=== PATIENT | male | born 1975 | race African-American/Black ===

== ENCOUNTER 2016-02-19 12:06 | Inpatient (IN) | payer MEDICARE, MEDICAID ==
[2016-02-19] MEDS ORDERED: Morphine INJ* 4 MG/ML 1 ML CARPUJECT IV ONE (15:16)
[2016-02-19] MEDS ORDERED: Ondansetron INJ* 2 MG/ML VIAL IV ONE (15:16)
[2016-02-19 15:34] LABS: Hematocrit 42 % (42-52); Hemoglobin 13.7 g/dl (14.0-18.0); Mean Corpuscular HGB Conc 33 g/dl (31-36); Mean Corpuscular Hemoglobin 30 pg (27-31); Mean Corpuscular Volume 91 fL (80-94); Mean Platelet Volume 10 um3 (7.4-10.4); Red Blood Count 4.63 10^6/ul (4.0-5.4); Red Cell Distribution Width 13 % (10.5-15); White Blood Count 20.3 10^3/ul (3.5-10.8)
[2016-02-19] MEDS: NS 0.9% 1000 ML* 1,000 ML IV SCH ×2 (15:45→21:58)
[2016-02-19 15:48] LABS: Troponin I 0.02 ng/mL (<0.04)
[2016-02-19 15:49] LABS: ALT 61 U/L (7-52); AST 10 U/L (13-39); Albumin 4.5 g/dL (3.2-5.2); Alkaline Phosphatase 103 U/L (34-104); Anion Gap 5 mmol/L (2-11); BUN/Creatinine Ratio 16.1 (8-20); Blood Urea Nitrogen 15 mg/dL (6-24); C Reactive Protein 3.91 mg/L (< 5.00); CO2 Carbon Dioxide 24 mmol/L (22-32); Chloride 107 mmol/L (101-111); Creatine Kinase 21 U/L (10-223); EGFR African American 115.2 (>60); EGFR Non-African American 89.5 (>60); Globulin 3.1 g/dL (2-4); Glucose 107 mg/dL (70-100); Lipase 13 U/L (11.0-82.0); Magnesium 2.7 mg/dL (1.9-2.7); Potassium 3.9 mmol/L (3.5-5.0); Sodium 136 mmol/L (133-145); Total Protein 7.6 g/dL (6.4-8.9)
[2016-02-19 15:55] LABS: Alcohol < 10 mg/dL (<10)
[2016-02-19 16:00] LABS: TSH (Thyroid Stimulating Horm) 0.53 mcIU/mL (0.34-5.60)
[2016-02-19] MEDS ORDERED: oxyCODONE TAB* 5 MG TAB PO ONE (16:36)
[2016-02-19] MEDS ORDERED: NS 0.9% 1000 ML* 1,000 ML IV ONE (16:40)
[2016-02-19] MEDS ORDERED: Ondansetron INJ* 2 MG/ML VIAL IV PRN (17:37)
[2016-02-19] MEDS ORDERED: Acetaminophen TAB* 325 MG PO PRN (17:37)
--- NOTE | 2016-02-19 17:45 | ED ---
Anurag Casas Karl, scribed for Jonatan Boone MD on 02/19/16 at 1455 . Neurological HPI - HPI Summary HPI Summary: Pt is a 40 y/o male that presents to the ED c/o MS exacerbation. Pt reported that at approx 07:30 this morning he began to have shakes and tremors in his legs bilaterally that was followed by 9/10 pain coming up his left side. Pt stated that he attempted to get up from the position he was in and his legs " not responding at all," stating that it feels like "electricity" is going up his legs. Pt reported that his left side is particularly weak and pain is shooting all up his left side. Pt takes Gabapentin, Keppra, and a fentanyl patch. Hx: MS, seizures. - History of Current Complaint Chief Complaint: EDGeneral Stated Complaint: LT SIDE PAIN Time Seen by Provider: 02/19/16 14:44 Hx Obtained From: Patient Onset/Duration: Gradual Onset, Started hours ago, Worse Since Timing: Constant Onset Severity: Mild Current Severity: Moderate Pain Intensity: 9 - Left Sided Pain Pain Scale Used: 0-10 Numeric Associated Signs and Symptoms: Positive: Weakness - and pain in left side - Allergy/Home Medications Allergies/Adverse Reactions: Allergies Allergy/AdvReac Type Severity Reaction Status Date / Time Meloxicam Allergy Severe See Comment Verified 02/19/16 12:25 PMH/Surg Hx/FS Hx/Imm Hx Infectious Disease History: No Infectious Disease History: Denies: Traveled Outside the [place] in Last 30 Days - Family History Known Family History: Positive: Cardiac Disease, Diabetes - Social History Alcohol Use: None Hx Tobacco Use: No Review of Systems Constitutional: Negative Eyes: Negative ENT: Negative Cardiovascular: Negative Respiratory: Negative Gastrointestinal: Negative Genitourinary: Negative Positive: Other - left sided weakness and pain Skin: Negative Positive: Weakness - left sided Psychological: Normal All Other Systems Reviewed And Are Negative: Yes Physical Exam Triage Information Reviewed: Yes Vital Signs On Initial Exam: Initial Vitals Temp Pulse Resp BP Pulse Ox 98.0 F 99 16 136/96 100 02/19/16 12:10 02/19/16 12:10 02/19/16 12:10 02/19/16 12:10 02/19/16 12:10 Vital Signs Reviewed: Yes Appearance: Positive: Well-Appearing, No Pain Distress Skin: Positive: Warm, Skin Color Reflects Adequate Perfusion, Dry Head/Face: Positive: Normal Head/Face Inspection Eyes: Positive: EOMI, EDMOND ENT: Positive: Normal ENT inspection Neck: Positive: Supple, Nontender Respiratory/Lung Sounds: Positive: Clear to Auscultation, Breath Sounds Present Cardiovascular: Positive: RRR Abdomen Description: Positive: Nontender, Soft Bowel Sounds: Positive: Present Musculoskeletal: Positive: Other - left arm and left leg weakness Neurological: Positive: Sensory/Motor Intact, Alert, Oriented to Person Place, Time, Other - left arm and left leg weakness Psychiatric: Positive: Affect/Mood Appropriate Diagnostics - Vital Signs Vital Signs Temp Pulse Resp BP Pulse Ox 02/19/16 12:10 98.0 F 99 16 136/96 100 - Laboratory Lab Results: Lab Results 02/19/16 02/19/16 02/19/16 Range/Units 15:05 15:05 15:05 WBC 20.3 H (3.5-10.8) 10^3/ul RBC 4.63 (4.0-5.4) 10^6/ul Hgb 13.7 L (14.0-18.0) g/dl Hct 42 (42-52) % MCV 91 (80-94) fL MCH 30 (27-31) pg MCHC 33 (31-36) g/dl RDW 13 (10.5-15) % Plt Count 329 (150-450) 10^3/ul MPV 10 (7.4-10.4) um3 Neut % (Auto) 88.9 H (38-83) % Lymph % (Auto) 6.8 L (25-47) % Fillmore % (Auto) 4.1 (1-9) % Eos % (Auto) 0 (0-6) % Baso % (Auto) 0.2 (0-2) % Absolute Neuts (auto) 18.1 H (1.5-7.7) 10^3/ul Absolute Lymphs (auto) 1.4 (1.0-4.8) 10^3/ul Absolute Monos (auto) 0.8 (0-0.8) 10^3/ul Absolute Eos (auto) 0 (0-0.6) 10^3/ul Absolute Basos (auto) 0 (0-0.2) 10^3/ul Absolute Nucleated RBC 0 10^3/ul Nucleated RBC % 0 INR (Anticoag Therapy) 1.08 (0.89-1.11) APTT 33.5 (26.0-36.3) seconds Sodium 136 (133-145) mmol/L Potassium 3.9 (3.5-5.0) mmol/L Chloride 107 (101-111) mmol/L Carbon Dioxide 24 (22-32) mmol/L Anion Gap 5 (2-11) mmol/L BUN 15 (6-24) mg/dL Creatinine 0.93 (0.67-1.17) mg/dL Est GFR ( Amer) 115.2 (>60) Est GFR (Non-Af Amer) 89.5 (>60) BUN/Creatinine Ratio 16.1 (8-20) Glucose 107 H (70-100) mg/dL Lactic Acid (0.5-2.0) mmol/L Calcium 10.0 (8.6-10.3) mg/dL Magnesium 2.7 (1.9-2.7) mg/dL Total Bilirubin 0.50 (0.2-1.0) mg/dL AST 10 L (13-39) U/L ALT 61 H (7-52) U/L Alkaline Phosphatase 103 (34-104) U/L Total Creatine Kinase 21 (10-223) U/L CK-MB (CK-2) 1.5 (0.6-6.3) ng/mL Troponin I 0.02 (<0.04) ng/mL C-Reactive Protein 3.91 (< 5.00) mg/L Total Protein 7.6 (6.4-8.9) g/dL Albumin 4.5 (3.2-5.2) g/dL Globulin 3.1 (2-4) g/dL Albumin/Globulin Ratio 1.5 (1-3) Lipase 13 (11.0-82.0) U/L TSH 0.53 (0.34-5.60) mcIU/mL Serum Alcohol < 10 (<10) mg/dL 02/19/16 Range/Units 15:05 WBC (3.5-10.8) 10^3/ul RBC (4.0-5.4) 10^6/ul Hgb (14.0-18.0) g/dl Hct (42-52) % MCV (80-94) fL MCH (27-31) pg MCHC (31-36) g/dl RDW (10.5-15) % Plt Count (150-450) 10^3/ul MPV (7.4-10.4) um3 Neut % (Auto) (38-83) % Lymph % (Auto) (25-47) % Fillmore % (Auto) (1-9) % Eos % (Auto) (0-6) % Baso % (Auto) (0-2) % Absolute Neuts (auto) (1.5-7.7) 10^3/ul Absolute Lymphs (auto) (1.0-4.8) 10^3/ul Absolute Monos (auto) (0-0.8) 10^3/ul Absolute Eos (auto) (0-0.6) 10^3/ul Absolute Basos (auto) (0-0.2) 10^3/ul Absolute Nucleated RBC 10^3/ul Nucleated RBC % INR (Anticoag Therapy) (0.89-1.11) APTT (26.0-36.3) seconds Sodium (133-145) mmol/L Potassium (3.5-5.0) mmol/L Chloride (101-111) mmol/L Carbon Dioxide (22-32) mmol/L Anion Gap (2-11) mmol/L BUN (6-24) mg/dL Creatinine (0.67-1.17) mg/dL Est GFR ( Amer) (>60) Est GFR (Non-Af Amer) (>60) BUN/Creatinine Ratio (8-20) Glucose (70-100) mg/dL Lactic Acid 1.4 (0.5-2.0) mmol/L Calcium (8.6-10.3) mg/dL Magnesium (1.9-2.7) mg/dL Total Bilirubin (0.2-1.0) mg/dL AST (13-39) U/L ALT (7-52) U/L Alkaline Phosphatase (34-104) U/L Total Creatine Kinase (10-223) U/L CK-MB (CK-2) (0.6-6.3) ng/mL Troponin I (<0.04) ng/mL C-Reactive Protein (< 5.00) mg/L Total Protein (6.4-8.9) g/dL Albumin (3.2-5.2) g/dL Globulin (2-4) g/dL Albumin/Globulin Ratio (1-3) Lipase (11.0-82.0) U/L TSH (0.34-5.60) mcIU/mL Serum Alcohol (<10) mg/dL Result Diagrams: 02/19/16 15:05 02/19/16 15:05 Lab Statement: Any lab studies that have been ordered have been reviewed, and results considered in the medical decision making process. Course/Dx - Course Assessment/Plan: DR BEATTY SAW PATIENT IN ED. ADMIT HOSPITALIST STABLE. - Diagnoses Provider Diagnoses: Left-sided weakness - Physician Notifications Discussed Care of Patient With: Dr. Beatty (Neurology) at 16:35 Discharge - Discharge Plan Condition: Stable Disposition: ADMITTED TO [facility] documentation as recorded by the Anurag pitst Karl accurately reflects the service I personally performed and the decisions made by me, Jonatan Boone MD.
[2016-02-19 17:47] LABS: Urine Bacteria Absent (Absent); Urine Bilirubin Negative (Negative); Urine Glucose Negative (Negative); Urine Nitrite Negative (Negative); Urine Sperm Present (Absent)
[2016-02-19 18:05] LABS: Benzodiazepine Urine Screen None Detected (None Detect)
--- NOTE | 2016-02-19 18:27 | RAD ---
Indication: Leukocytosis. LEFT side pain. Comparison: September 30, 2005 Technique: Upright AP 1805 hours Report: Clear lungs and pleural spaces. Negative for pneumothorax. The heart, pulmonary vasculature, and mediastinal contours are unremarkable. Unremarkable osseous structures and soft tissue contours. Solitary cerclage wire at level of the cervical thoracic junction as on the prior exam. IMPRESSION: No evidence for acute intrathoracic disease.
[2016-02-19] MEDS ORDERED: Gadoteridol* (CONTRAST) 279.3 MG/ML 10 ML IV ONE (20:44)
--- NOTE | 2016-02-19 21:00 | RAD ---
Indication: Bilateral leg weakness and LEFT arm weakness. History of MS. Comparison: Chest radiograph of the same date. Technique: Fuzza 1.5 Laine [id number] with GEM suite. Noncontrast MRI cervical spine. Report: The cervical spinal cord is normal in patterns of signal intensity. No conspicuous spinal cord lesions or syringohydromyelia. Normal bone marrow signal throughout. Artifact from cerclage wire spanning the posterior elements of the C6 and C7 vertebral bodies corresponding with chest radiograph finding of the same date. Normal vertebral alignment without spondylolisthesis or subluxation at any level. C2-C3: Unremarkable for age. C3-C4: Uncinate process spurring and facet joint osteoarthritis results in mild LEFT foraminal stenosis. C4-C5: Uncinate process spurring and facet joint osteoarthritis results in moderately severe RIGHT and mild LEFT foraminal stenosis. C5-C6: Congenitally narrow disc space. Negative for spinal stenosis. C6-C7: Congenitally narrow disc space with partial ankylosis of the vertebral bodies. Negative for spinal stenosis. C7-T1: Congenitally narrow disc space. Negative for spinal stenosis. IMPRESSION: 1. 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 Artifact from cerclage wire spanning the C6-C7 posterior elements. 2. Acquired foraminal stenosis at C3-C4 and C4-C5 as described. 3. No lesions of the cervical spinal cord evident.
--- NOTE | 2016-02-19 21:27 | RAD ---
Indication: Bilateral leg weakness. LEFT arm weakness. History of MS. Comparison: No relevant prior exams available on the [facility] PACS. Technique: THERAVECTYS [place] 1.5 Laine [id number] with GEM suite. MRI brain without and with contrast. 18 mL ProHance administered IV. Report: Negative for foci of hyperintensity on the diffusion weighted series with corresponding hypointensity on ADC map evident to indicate acute or subacute ischemia. Susceptibility series is negative for stigmata of hemosiderin deposition to indicate previous hemorrhage. The cerebral sulci, ventricles, and basal cisterns are within normal limits. Multiple bilateral foci of T2 and FLAIR hyperintensity within the periventricular white matter of the cerebral hemispheres with multiple bilateral lesions are oriented perpendicular to the corpus callosum. Dominant lesion on the RIGHT adjacent to the temporal horn of the lateral ventricle measures up to 1.0 cm maximum dimension. Medical Assisting Program Director lesion at the LEFT parietal lobe white matter oriented perpendicular to the corpus callosum measures up to 0.9 cm maximum dimension on the sagittal T2 FLAIR series image 18. T2 hyperintensity at the septal colossal interface. None of the lesions demonstrate compelling enhancement on the postcontrast series to indicate an active demyelinating lesion. Preserved major intracranial flow-voids. Unremarkable orbital contents. Mild mucosal thickening at the LEFT maxillary sinus. Negative for paranasal sinus fluid levels. No suspicious lesion of the calvarium or skull base. RIGHT para midline anterior vertex sharply circumscribed 1.4 x 1.6 x 0.6 cm scalp lesion which follows fat signal intensity on all pulse sequences most consistent with a benign lipoma. IMPRESSION: 1. Multiple bilateral periventricular supratentorial white matter lesions with involvement of the corpus callosum and septal colossal interface with multiple lesions oriented perpendicular to the corpus callosum consistent with multiple sclerosis given the clinical context. None of the lesions demonstrate enhancement on the postcontrast series to indicate an acute demyelinating lesion. 2. No definitive demyelinating lesions evident at the posterior fossa.
[2016-02-19] MEDS: Gabapentin CAP(*) 300 MG PO SCH (21:56)
[2016-02-19] MEDS: Metoprolol Tartrate TAB* 100 MG TAB PO SCH (21:58)
[2016-02-19] MEDS: levETIRAcetam TAB* 500 MG PO SCH (21:58)
[2016-02-19] MEDS: oxyCODONE TAB* 5 MG TAB PO PRN (21:59)
[2016-02-19] MEDS: fentaNYL PATCH 50 MCG/HR TRANSDERM SCH (22:00)
[2016-02-19] MEDS: Heparin VIAL(*) 5000 UNITS/ML VIAL (FIVE THOUSAND) SUBCUT SCH (22:14)
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
[2016-02-20] MEDS: Cyclobenzaprine TAB* 10 MG PO PRN ×2 (02:27→06:53)
[2016-02-20] MEDS: oxyCODONE TAB* 5 MG TAB PO PRN ×4 (02:29→18:38)
[2016-02-20 06:36] LABS: Hematocrit 35 % (42-52); Hemoglobin 11.3 g/dl (14.0-18.0); Mean Corpuscular HGB Conc 33 g/dl (31-36); Mean Corpuscular Hemoglobin 30 pg (27-31); Mean Corpuscular Volume 91 fL (80-94); Mean Platelet Volume 9 um3 (7.4-10.4); Red Blood Count 3.77 10^6/ul (4.0-5.4); Red Cell Distribution Width 13 % (10.5-15); White Blood Count 16.7 10^3/ul (3.5-10.8)
[2016-02-20 06:50] LABS: Calcium 8.4 mg/dL (8.6-10.3); EGFR African American 113.7 (>60); EGFR Non-African American 88.4 (>60); Potassium 3.9 mmol/L (3.5-5.0)
[2016-02-20] MEDS: Heparin VIAL(*) 5000 UNITS/ML VIAL (FIVE THOUSAND) SUBCUT SCH ×3 (06:58→20:14)
[2016-02-20] MEDS: fentaNYL Patch Check Q Shift 1 NOTE SCH ×2 (07:34→18:58)
[2016-02-20] MEDS: levETIRAcetam TAB* 500 MG PO SCH ×2 (10:00→20:13)
[2016-02-20] MEDS: NS 0.9% 1000 ML* 1,000 ML IV SCH (10:00)
[2016-02-20] MEDS: Metoprolol Tartrate TAB* 100 MG TAB PO SCH ×2 (10:00→20:14)
[2016-02-20] MEDS: Gabapentin CAP(*) 300 MG PO SCH ×3 (10:00→20:12)
[2016-02-20] MEDS: Morphine INJ* 4 MG/ML 1 ML CARPUJECT ONE ×2 (10:26→12:43)
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
[2016-02-20] MEDS ORDERED: NS 0.9% 250 ML* 250 ML ONE (12:39)
[2016-02-20] MEDS ORDERED: methylPREDNISolone SOD SUCC* 1,000 MG in NS 0.9% 250 ML* 250 ML IVPB ONE (13:00)
[2016-02-20] MEDS: Morphine INJ* 4 MG/ML 1 ML CARPUJECT IV PRN ×2 (16:23→21:31)
[2016-02-20] MEDS ORDERED: NS 0.9% 1000 ML* 1,000 ML IV SCH (16:54)
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
[2016-02-21] MEDS: oxyCODONE TAB* 5 MG TAB PO PRN ×5 (00:32→22:50)
[2016-02-21] MEDS: Morphine INJ* 4 MG/ML 1 ML CARPUJECT IV PRN ×5 (02:13→20:10)
[2016-02-21] MEDS: Heparin VIAL(*) 5000 UNITS/ML VIAL (FIVE THOUSAND) SUBCUT SCH ×3 (05:42→20:16)
[2016-02-21 06:30] LABS: Hematocrit 35 % (42-52); Hemoglobin 11.5 g/dl (14.0-18.0); Mean Corpuscular HGB Conc 33 g/dl (31-36); Mean Corpuscular Hemoglobin 30 pg (27-31); Mean Corpuscular Volume 90 fL (80-94); Mean Platelet Volume 9 um3 (7.4-10.4); Red Blood Count 3.89 10^6/ul (4.0-5.4); Red Cell Distribution Width 13 % (10.5-15); White Blood Count 23.7 10^3/ul (3.5-10.8)
[2016-02-21 06:47] LABS: Add Diff/Slide Review? Slide Review Added; Comments Flag Yes
[2016-02-21] MEDS: fentaNYL Patch Check Q Shift 1 NOTE SCH ×2 (07:48→18:44)
[2016-02-21] MEDS: fentaNYL PATCH 50 MCG/HR TRANSDERM SCH (07:51)
[2016-02-21] MEDS: methylPREDNISolone SOD SUCC* 1,000 MG in NS 0.9% 250 ML* 250 ML IVPB SCH (08:56)
[2016-02-21] MEDS: Metoprolol Tartrate TAB* 100 MG TAB PO SCH ×2 (08:57→20:09)
[2016-02-21] MEDS: levETIRAcetam TAB* 500 MG PO SCH ×2 (08:57→20:09)
[2016-02-21] MEDS: Gabapentin CAP(*) 300 MG PO SCH ×3 (08:57→20:09)
[2016-02-21] MEDS ORDERED: methylPREDNISolone 125 MG* 2 ML VIAL IV SCH (09:00)
--- NOTE | 2016-02-21 11:20 | PN ---
Subjective Date of Service: 02/21/16 Interval History: This is a 40 yo gentleman with a h/o seizure d/o, MS and chronic pain related to cervical impingement who presented with complaints of L sided pain and weakness which he reported was typical of his MS flares. He has been followed by Dr Avery, with the [place] system, for neurology care. Reports from [facility] arrived and have been reviewed. Patient has been admitted on 3 occasions in the month of January with a similar constellation of symptoms. Patient was treated with 1-3 days of 1g of SoluMedrol. It sounds like follow-up and compliance have been of concern. Patient has been unable to tolerate Coaxone, IFN and tecfidera. He has been prescribed Aubagio, but has yet to receive it for a number of reasons. He had MRI of the brain and entire spine within the last month during a flare of symptoms that did not demonstrate any new enhancing lesions. He is interested in transferring his care to the [facility] system. Dr Beatty saw him at admission and he has been started on SoluMedrol for presumed MS flare. Contrasted MRI study of brain and CSpine did not show any enhancing lesions. No cervical lesions present, but multiple brain lesions noted consistent with MS. Objective Active Medications: Acetaminophen (Tylenol Tab*) 650 mg PO Q4H PRN PRN Reason: FEVER/PAIN Last Admin: 02/20/16 07:34 Dose: 650 mg Cyclobenzaprine HCl (Flexeril Tab*) 10 mg PO BID PRN PRN Reason: SPASMS Last Admin: 02/20/16 02:27 Dose: 10 mg Fentanyl (Duragesic Patch 50 Mcg/Hr*) 50 mcg TRANSDERM Q72H [facility] Last Admin: 02/21/16 07:51 Dose: 50 mcg Gabapentin (Neurontin Cap(*)) 300 mg PO TID [facility] Last Admin: 02/21/16 08:57 Dose: 300 mg Heparin Sodium (Porcine) (Heparin Vial(*)) 5,000 units SUBCUT Q8HR [facility] Last Admin: 02/21/16 05:42 Dose: Not Given Sodium Chloride (Ns 0.9% 1000 Ml*) 1,000 mls @ 75 mls/hr IV PER RATE [facility] Methylprednisolone Sodium Succinate 1,000 mg/ Sodium Chloride 250 mls @ 250 mls /hr IVPB DAILY [facility] PRN Reason: Per Protocol Stop: 02/22/16 09:59 Last Admin: 02/21/16 08:56 Dose: 250 mls/hr Levetiracetam (Keppra Tab*) 500 mg PO BID [facility] Last Admin: 02/21/16 08:57 Dose: 500 mg Metoprolol Tartrate (Lopressor Tab*) 100 mg PO BID [facility] Last Admin: 02/21/16 08:57 Dose: 100 mg Morphine Sulfate (Morphine Inj (Syringe)*) 4 mg IV Q4H PRN PRN Reason: PAIN Last Admin: 02/21/16 07:38 Dose: 4 mg Ondansetron HCl (Zofran Inj*) 4 mg IV Q6H PRN PRN Reason: NAUSEA Oxycodone HCl (Roxycodone Tab*) 15 mg PO Q6H PRN PRN Reason: PAIN - MODERATE TO SEVERE Last Admin: 02/21/16 06:27 Dose: 15 mg Pharmacy Profile Note (Fentanyl Patch Check Q Shift) 1 note N/A 0700,1900 [facility] Last Admin: 02/21/16 07:48 Dose: 1 note Vital Signs: Temp Pulse Resp BP Pulse Ox 97.6 F 77 14 130/87 99 02/21/16 07:24 02/21/16 07:24 02/21/16 08:57 02/21/16 07:24 02/21/16 07:24 Oxygen Devices in Use Now: None Appearance: Well appearing in NAD Respiratory: Symmetrical Chest Expansion and Respiratory Effort, Clear to Auscultation Cardiovascular: NL Sounds; No Murmurs; No JVD, RRR Extremities: No Edema Skin: No Rash or Ulcers Neurological: Alert and Oriented x 3, - - 4/5 strength in RUE and RLE Result Diagrams: 02/21/16 06:11 02/20/16 06:13 Additional Lab and Data: . Diagnostic Imaging: MRI brain - multiple white matter lesions, non enhancing MRI CS - no lesions appreciated. Congenital anomaly C5-T1 causing central stenosis. Assess/Plan/Problems-Billing Assessment: Mr. Anderson is a 40 yo male with a PMH of MS, seizures, chronic back pain, cervical radiculopathy, old cervical fracture s/p fusion who presented on to the ED with worsening weakness in LUE and LLE and shooting pain/tingling/ numbness in LLE. - Patient Problems (1) Multiple sclerosis Comment: With acute flare Neurology following No new enhancing lesions on MRI Continue with 1g SoluMedrol daily (today is day 2/3, consider 5 day course depending on symptoms tomorrow) Reviewed records from [facility], he has had multiple admissions in the last month. Reportedly failed IFN, tecidera and copaxone due to intolerances, followed by Dr Avery, but would like to transfer to [facility] system, Dr Beatty is willing to follow as an outpt Patient has been prescribed Aubagio, but has not started this medication at home (2) Seizure disorder Comment: Cont Keppra No seizure activity noted (3) Chronic neck pain Comment: Cont Fentanyl patch and oxycodone Using prn IV morphine Gabapentin is on home medication list, but he isn't familiar with it, this is a good option for neuropathic pain management so it will be continued (4) Leukocytosis Comment: Afebrile, UA and CXR negative. Cultures negative No other s/s of systemic infection. Likely leukemoid reaction from previous steroid administration. (5) Pain of left lower extremity Status and Disposition: Patient requires continued inpatient care. Anticipate discharge in 1-3 days.
--- NOTE | 2016-02-21 13:04 | PN ---
Progress Note - Progress Note SOAP: Neurology progress note Date of service: 02/21/16 Subjective: Patient had increased symptoms of tingling in the left side of the body especially last night that prevented him to have adequate rest. Today is day #2 of his IV steroid. Old records were from [facility] and reviewed. He had multiple episodes of clinical exacerbation without clear imaging change (no new lesions or enhancement), but clinically has been responding to IV steroid. Per patient he had a 5-day course twice and both times that led to the longest remission periods, whereas he has frequent relapses with 3 days or less courses. Per records he has been on interferon beta, copaxone, tecfidera and all were discontinued because of side effects. He has been prescribed Abagio, but has not obtained that yet. Objective: Vital Signs Temp Pulse Resp BP Pulse Ox 97.6 F 77 16 130/87 99 02/21/16 07:24 02/21/16 07:24 02/21/16 12:01 02/21/16 07:24 02/21/16 07:24 Current Medications Acetaminophen (Tylenol Tab*) 650 mg PO Q4H PRN PRN Reason: FEVER/PAIN Last Admin: 02/20/16 07:34 Dose: 650 mg Cyclobenzaprine HCl (Flexeril Tab*) 10 mg PO BID PRN PRN Reason: SPASMS Last Admin: 02/20/16 02:27 Dose: 10 mg Fentanyl (Duragesic Patch 50 Mcg/Hr*) [address] [facility] Last Admin: 02/21/16 07:51 Dose: 50 mcg Gabapentin (Neurontin Cap(*)) [address] [facility] Last Admin: 02/21/16 08:57 Dose: 300 mg Heparin Sodium (Porcine) (Heparin Vial(*)) 5,[address] [facility] Last Admin: 02/21/16 05:42 Dose: Not Given Sodium Chloride (Ns 0.9% 1000 Ml*) 1,000 mls @ 75 mls/hr IV PER RATE [facility] Methylprednisolone Sodium Succinate 1,000 mg/ Sodium Chloride 250 mls @ 250 mls /hr IVPB DAILY [facility] PRN Reason: Per Protocol Stop: 02/22/16 09:59 Last Admin: 02/21/16 08:56 Dose: 250 mls/hr Levetiracetam (Keppra Tab*) [address] [facility] Last Admin: 02/21/16 08:57 Dose: 500 mg Metoprolol Tartrate (Lopressor Tab*) [address] [facility] Last Admin: 02/21/16 08:57 Dose: 100 mg Morphine Sulfate (Morphine Inj (Syringe)*) 4 mg IV Q4H PRN PRN Reason: PAIN Last Admin: 02/21/16 12:01 Dose: 4 mg Ondansetron HCl (Zofran Inj*) 4 mg IV Q6H PRN PRN Reason: NAUSEA Oxycodone HCl (Roxycodone Tab*) 15 mg PO Q6H PRN PRN Reason: PAIN - MODERATE TO SEVERE Last Admin: 02/21/16 06:27 Dose: 15 mg Pharmacy Profile Note (Fentanyl Patch Check Q Shift) 1 note N/A 0700,1900 [facility] Last Admin: 02/21/16 07:48 Dose: 1 note Laboratory Results - last 24 hr 02/21/16 06:11 WBC 23.7 H RBC 3.89 L Hgb 11.5 L Hct 35 L MCV 90 MCH 30 MCHC 33 RDW 13 Plt Count 252 MPV 9 Neut % (Auto) 91.7 H Lymph % (Auto) 5.3 L Daniels % (Auto) 2.9 Eos % (Auto) 0 Baso % (Auto) 0.1 Absolute Neuts (auto) 21.8 H Absolute Lymphs (auto) 1.2 Absolute Monos (auto) 0.7 Absolute Eos (auto) 0 Absolute Basos (auto) 0 Absolute Nucleated RBC 0.01 Nucleated RBC % 0 On neuroexam he is wake, alert and oriented. Visual field intact by confrontation. Pupils are symmetric and reactive to light. Color perception is equal and intact on both eyes. Face symmetric. Tongue in midline. Strength and tone is 5/5 on the right. On the left, strength probably 4+/5 in the left upper and 4/5 in the left lower extremity. He has decreased sensation to pinprick on the left upper and lower extremities compared to the right. Finger to nose intact bilaterally. Assessment and Plan: 40-year-old male with history of probably relapsing-remitting MS (without clear evidence of worsening of his lesions on MRI) who presented with increased weakness and sensory symptoms on the left side. Now on IV steroids with some clinical response. Suggest plan for 3-5 days of IV steroids + PT. The last couple of his doses can be considered to be done as outpatient infusion center if he is cleared in terms of his safety at home (ambulation, gait). Need disease modifying agents and outpatient neurology follow up.
[2016-02-22] MEDS: Morphine INJ* 4 MG/ML 1 ML CARPUJECT IV PRN ×6 (00:01→22:15)
[2016-02-22] MEDS: oxyCODONE TAB* 5 MG TAB PO PRN ×5 (03:16→21:02)
[2016-02-22] MEDS: Heparin VIAL(*) 5000 UNITS/ML VIAL (FIVE THOUSAND) SUBCUT SCH ×3 (05:34→21:05)
[2016-02-22] MEDS: fentaNYL Patch Check Q Shift 1 NOTE SCH (06:51)
[2016-02-22] MEDS: Gabapentin CAP(*) 300 MG PO SCH ×3 (08:35→21:00)
[2016-02-22] MEDS: methylPREDNISolone SOD SUCC* 1,000 MG in NS 0.9% 250 ML* 250 ML IVPB SCH (08:35)
[2016-02-22] MEDS: levETIRAcetam TAB* 500 MG PO SCH ×2 (08:36→21:01)
[2016-02-22] MEDS: Metoprolol Tartrate TAB* 100 MG TAB PO SCH ×2 (08:36→21:00)
--- NOTE | 2016-02-22 11:18 | PN ---
Subjective Date of Service: 02/22/16 Interval History: Patient reports continued weakness in LUE and LLE. Pain has improved somewhat. He feels that his gait is still quite unsteady. Denies any new symptoms including CP, SOB, abd pain, n/v. He reports he had some difficulty sleeping last night. Objective Active Medications: Acetaminophen (Tylenol Tab*) 650 mg PO Q4H PRN PRN Reason: FEVER/PAIN Last Admin: 02/20/16 07:34 Dose: 650 mg Cyclobenzaprine HCl (Flexeril Tab*) 10 mg PO BID PRN PRN Reason: SPASMS Last Admin: 02/20/16 02:27 Dose: 10 mg Fentanyl (Duragesic Patch 50 Mcg/Hr*) 50 mcg TRANSDERM Q72H [facility] Last Admin: 02/21/16 07:51 Dose: 50 mcg Gabapentin (Neurontin Cap(*)) 300 mg PO TID [facility] Last Admin: 02/22/16 08:35 Dose: 300 mg Heparin Sodium (Porcine) (Heparin Vial(*)) 5,000 units SUBCUT Q8HR [facility] Last Admin: 02/22/16 05:34 Dose: Not Given Levetiracetam (Keppra Tab*) 500 mg PO BID [facility] Last Admin: 02/22/16 08:36 Dose: 500 mg Metoprolol Tartrate (Lopressor Tab*) 100 mg PO BID [facility] Last Admin: 02/22/16 08:36 Dose: 100 mg Morphine Sulfate (Morphine Inj (Syringe)*) 4 mg IV Q4H PRN PRN Reason: PAIN Last Admin: 02/22/16 09:26 Dose: 4 mg Ondansetron HCl (Zofran Inj*) 4 mg IV Q6H PRN PRN Reason: NAUSEA Oxycodone HCl (Roxycodone Tab*) 15 mg PO Q4H PRN PRN Reason: PAIN - MODERATE TO SEVERE Last Admin: 02/22/16 08:36 Dose: 15 mg Pharmacy Profile Note (Fentanyl Patch Check Q Shift) 1 note N/A 0700,1900 [facility] Last Admin: 02/22/16 06:51 Dose: 1 note Vital Signs: Temp Pulse Resp BP Pulse Ox 97.8 F 58 18 115/68 98 02/22/16 08:13 02/22/16 08:13 02/22/16 09:26 02/22/16 08:13 02/22/16 08:13 Oxygen Devices in Use Now: None Appearance: Fatigued, but overall well appearing in NAD Respiratory: Symmetrical Chest Expansion and Respiratory Effort, Clear to Auscultation Cardiovascular: NL Sounds; No Murmurs; No JVD, RRR Abdominal: NL Sounds; No Tenderness; No Distention Extremities: No Edema Skin: No Rash or Ulcers Neurological: Alert and Oriented x 3, - - reduced strength note in LUE and ROSA MARIA, similar to exam yesterday, estimate 05/19 Result Diagrams: 02/21/16 06:11 02/20/16 06:13 Additional Lab and Data: . Diagnostic Imaging: MRI brain - multiple white matter lesions, non enhancing MRI CS - no lesions appreciated. Congenital anomaly C5-T1 causing central stenosis. Assess/Plan/Problems-Billing Assessment: Mr. Anderson is a 40 yo male with a PMH of MS, seizures, chronic back pain, cervical radiculopathy, old cervical fracture s/p fusion who presented on to the ED with worsening weakness in LUE and LLE and shooting pain/tingling/ numbness in LLE. - Patient Problems (1) Multiple sclerosis Comment: With acute flare Neurology following No new enhancing lesions on MRI Continue with 1g SoluMedrol daily Today is day 3 of steroids, he has had some clinical improvement but still has an unsteady gait and notable weakness on exam Will plan to complete full 5 day course of steroids, he would benefit from remaining in the hospital for those infusions due to his persistent weakness and unsteady gait to avoid a fall at home Reviewed records from [facility], he has had multiple admissions in the last month. Reportedly failed interferon beta, tecidera and copaxone due to intolerances, followed by Dr Avery, but would like to transfer to [facility] system, Dr Beatty is willing to follow as an outpt Patient has been prescribed Aubagio, but has not started this medication at home (2) Seizure disorder Comment: Cont Keppra No seizure activity noted (3) Chronic neck pain Comment: Cont Fentanyl patch and oxycodone Using prn IV morphine Gabapentin is on home medication list, but he isn't familiar with it, this is a good option for neuropathic pain management so it will be continued (4) Leukocytosis Comment: Afebrile, UA and CXR negative. Cultures negative No other s/s of systemic infection. Likely leukemoid reaction from previous steroid administration. (5) Pain of left lower extremity Status and Disposition: Patient requires continued inpatient care. Anticipate discharge Tuesday after completing full 5 day course of Solumedrol
[2016-02-22] MEDS ORDERED: fentaNYL PATCH 50 MCG/HR TRANSDERM SCH ×2 (14:30)
--- NOTE | 2016-02-22 21:55 | PN ---
Progress Note - Progress Note SOAP: Neurology progress note Date of service: 02/22/16 Subjective: I saw and examined the patient around 14:30 this afternoon. He was standing in the room close to the white board, seemed comfortable and stable. When asked him if he feels better he states "not much". Still feels that he is not stable when walking. Reports some pain in the leg overnight. Objective: Vital Signs Temp Pulse Resp BP Pulse Ox 98.3 F 71 18 119/73 96 02/22/16 20:57 02/22/16 20:57 02/22/16 21:02 02/22/16 20:57 02/22/16 20:57 Current Medications Acetaminophen (Tylenol Tab*) 650 mg PO Q4H PRN PRN Reason: FEVER/PAIN Last Admin: 02/20/16 07:34 Dose: 650 mg Cyclobenzaprine HCl (Flexeril Tab*) 10 mg PO BID PRN PRN Reason: SPASMS Last Admin: 02/20/16 02:27 Dose: 10 mg Fentanyl (Duragesic Patch 50 Mcg/Hr*) 50 mcg TRANSDERM Q72H [facility] Last Admin: 02/22/16 14:36 Dose: 50 mcg Gabapentin (Neurontin Cap(*)) 300 mg PO TID [facility] Last Admin: 02/22/16 21:00 Dose: 300 mg Heparin Sodium (Porcine) (Heparin Vial(*)) 5,000 units SUBCUT Q8HR [facility] Last Admin: 02/22/16 21:05 Dose: Not Given Methylprednisolone Sodium Succinate 1,000 mg/ Sodium Chloride 250 mls @ 0 mls/ hr IVPB DAILY [facility] PRN Reason: Per Protocol Stop: 02/24/16 09:01 Levetiracetam (Keppra Tab*) 500 mg PO BID [facility] Last Admin: 02/22/16 21:01 Dose: 500 mg Metoprolol Tartrate (Lopressor Tab*) 100 mg PO BID [facility] Last Admin: 02/22/16 21:00 Dose: 100 mg Morphine Sulfate (Morphine Inj (Syringe)*) 4 mg IV Q4H PRN PRN Reason: PAIN Last Admin: 02/22/16 18:11 Dose: 4 mg Ondansetron HCl (Zofran Inj*) 4 mg IV Q6H PRN PRN Reason: NAUSEA Oxycodone HCl (Roxycodone Tab*) 15 mg PO Q4H PRN PRN Reason: PAIN - MODERATE TO SEVERE Last Admin: 02/22/16 21:02 Dose: 15 mg Pharmacy Profile Note (Fentanyl Patch Check Q Shift) 1 note N/A 0700,1900 [facility] Last Admin: 02/22/16 06:51 Dose: 1 note On neuroexam he is wake, alert and oriented. Pupils are symmetric and reactive to light. Face symmetric. Tongue in midline. Strength and tone is 5/5 on the right. On the left, strength probably 4+/5 in the left upper and 4/5 in the left lower extremity. He has decreased sensation to pinprick on the left upper and lower extremities compared to the right. Finger to nose intact bilaterally. On gait he still needs assistance with cane or walker, specially when he turns around he is unsteady even with support. 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 Day #3 of IV steroid. There has been minimal response to steroid and he is still unsteady. Recommend to complete 5 days course of IV steroids. Disease modifying agent as outpatient will be considered.
[2016-02-22] MEDS: Cyclobenzaprine TAB* 10 MG PO PRN (22:16)
[2016-02-23] MEDS: oxyCODONE TAB* 5 MG TAB PO PRN ×6 (01:12→23:35)
[2016-02-23] MEDS: Morphine INJ* 4 MG/ML 1 ML CARPUJECT IV PRN ×4 (02:16→20:29)
[2016-02-23] MEDS: fentaNYL Patch Check Q Shift 1 NOTE SCH ×3 (04:35→19:01)
[2016-02-23] MEDS: Heparin VIAL(*) 5000 UNITS/ML VIAL (FIVE THOUSAND) SUBCUT SCH ×3 (06:35→23:38)
[2016-02-23] MEDS ORDERED: methylPREDNISolone 125 MG* 2 ML VIAL IV SCH (09:00)
[2016-02-23] MEDS: levETIRAcetam TAB* 500 MG PO SCH ×2 (09:22→20:36)
[2016-02-23] MEDS: Gabapentin CAP(*) 300 MG PO SCH ×3 (09:22→20:35)
[2016-02-23] MEDS: methylPREDNISolone SOD SUCC* 1,000 MG in NS 0.9% 250 ML* 250 ML IVPB SCH (09:30)
[2016-02-23] MEDS: Metoprolol Tartrate TAB* 100 MG TAB PO SCH ×2 (09:31→20:36)
--- NOTE | 2016-02-23 16:22 | PN ---
Subjective Date of Service: 02/23/16 Interval History: Patient reports continued weakness and pain, but believes he has improved slightly. Denies any new complaints. Nursing has observed him ambulating freely around his room without balance difficulties, but patient reported significant weakness when working with PT today. Objective Active Medications: Acetaminophen (Tylenol Tab*) 650 mg PO Q4H PRN PRN Reason: FEVER/PAIN Last Admin: 02/20/16 07:34 Dose: 650 mg Cyclobenzaprine HCl (Flexeril Tab*) 10 mg PO BID PRN PRN Reason: SPASMS Last Admin: 02/22/16 22:16 Dose: 10 mg Fentanyl (Duragesic Patch 50 Mcg/Hr*) 50 mcg TRANSDERM Q72H [facility] Last Admin: 02/22/16 14:36 Dose: 50 mcg Gabapentin (Neurontin Cap(*)) 300 mg PO TID [facility] Last Admin: 02/23/16 13:44 Dose: 300 mg Heparin Sodium (Porcine) (Heparin Vial(*)) 5,000 units SUBCUT Q8HR [facility] Last Admin: 02/23/16 14:04 Dose: Not Given Methylprednisolone Sodium Succinate 1,000 mg/ Sodium Chloride 250 mls @ 0 mls/ hr IVPB DAILY [facility] PRN Reason: Per Protocol Stop: 02/24/16 09:01 Last Admin: 02/23/16 09:30 Dose: 250 mls/hr Levetiracetam (Keppra Tab*) 500 mg PO BID [facility] Last Admin: 02/23/16 09:22 Dose: 500 mg Metoprolol Tartrate (Lopressor Tab*) 100 mg PO BID [facility] Last Admin: 02/23/16 09:31 Dose: Not Given Morphine Sulfate (Morphine Inj (Syringe)*) 4 mg IV Q4H PRN PRN Reason: PAIN Last Admin: 02/23/16 16:02 Dose: 4 mg Ondansetron HCl (Zofran Inj*) 4 mg IV Q6H PRN PRN Reason: NAUSEA Oxycodone HCl (Roxycodone Tab*) 15 mg PO Q4H PRN PRN Reason: PAIN - MODERATE TO SEVERE Last Admin: 02/23/16 13:44 Dose: 15 mg Pharmacy Profile Note (Fentanyl Patch Check Q Shift) 1 note N/A 0700,1900 [facility] Last Admin: 02/23/16 07:07 Dose: 1 note Vital Signs: Temp Pulse Resp BP Pulse Ox 97.5 F 81 16 106/63 95 02/23/16 07:30 02/23/16 15:44 02/23/16 16:02 02/23/16 15:44 02/23/16 15:44 Oxygen Devices in Use Now: None Appearance: Well appearing, in NAD Respiratory: Symmetrical Chest Expansion and Respiratory Effort, Clear to Auscultation Cardiovascular: NL Sounds; No Murmurs; No JVD, RRR Abdominal: NL Sounds; No Tenderness; No Distention Extremities: No Edema Skin: No Rash or Ulcers Neurological: Alert and Oriented x 3, - - 4/5 LUE and LLE strength, similar, but perhaps slightly improved over yesterday Result Diagrams: 02/21/16 06:11 02/20/16 06:13 Additional Lab and Data: . Diagnostic Imaging: MRI brain - multiple white matter lesions, non enhancing MRI CS - no lesions appreciated. Congenital anomaly C5-T1 causing central stenosis. Assess/Plan/Problems-Billing Assessment: Mr. Anderson is a 40 yo male with a PMH of MS, seizures, chronic back pain, cervical radiculopathy, old cervical fracture s/p fusion who presented on to the ED with worsening weakness in LUE and LLE and shooting pain/tingling/ numbness in LLE. - Patient Problems (1) Multiple sclerosis Comment: With acute flare Neurology following No new enhancing lesions on MRI Continue with 1g SoluMedrol daily Today is day 4 of steroids, he has had some clinical improvement Will plan to complete full 5 day course of steroids There does seem to be some descrepancies between obervations by nursing staff and patients report, but will continue to treat accordingly Reviewed records from [facility], he has had multiple admissions in the last month. Reportedly failed interferon beta, tecidera and copaxone due to intolerances, followed by Dr Avery, but would like to transfer to [facility], Dr Beatty is willing to follow as an outpt Patient has been prescribed Aubagio, but has not started this medication at home (2) Seizure disorder Comment: Cont Keppra No seizure activity noted (3) Chronic neck pain Comment: Cont Fentanyl patch and oxycodone Using prn IV morphine Gabapentin is on home medication list, but he isn't familiar with it, this is a good option for neuropathic pain management so it will be continued (4) Leukocytosis Comment: Afebrile, UA and CXR negative. Cultures negative No other s/s of systemic infection. Likely leukemoid reaction from previous steroid administration. (5) Pain of left lower extremity Status and Disposition: Patient requires continued inpatient care. Anticipate discharge tomorrow after completing full 5 day course of Solumedrol
[2016-02-23] MEDS: Cyclobenzaprine TAB* 10 MG PO PRN (20:33)
[2016-02-23] MEDS ORDERED: fentaNYL PATCH 50 MCG/HR TRANSDERM SCH (21:00)
[2016-02-24] MEDS: Morphine INJ* 4 MG/ML 1 ML CARPUJECT IV PRN ×3 (01:09→10:25)
[2016-02-24] MEDS: oxyCODONE TAB* 5 MG TAB PO PRN ×2 (03:36→08:44)
[2016-02-24] MEDS: Heparin VIAL(*) 5000 UNITS/ML VIAL (FIVE THOUSAND) SUBCUT SCH (05:36)
[2016-02-24] MEDS: fentaNYL Patch Check Q Shift 1 NOTE SCH (06:59)
[2016-02-24 07:22] VITALS: BP 115/66
[2016-02-24] MEDS: Metoprolol Tartrate TAB* 100 MG TAB PO SCH (08:43)
[2016-02-24] MEDS: levETIRAcetam TAB* 500 MG PO SCH (08:43)
[2016-02-24] MEDS: Gabapentin CAP(*) 300 MG PO SCH (08:43)
[2016-02-24] MEDS: methylPREDNISolone SOD SUCC* 1,000 MG in NS 0.9% 250 ML* 250 ML IVPB SCH (08:47)
[2016-02-24] MEDS ORDERED: Metoprolol Tartrate TAB* 50 mg PO SCH (21:00)
--- NOTE | 2016-02-25 02:36 | DS ---
DISCHARGE SUMMARY:* ADDENDUM: DISCHARGE MEDICATIONS: 1. Flexeril 10 mg p.o. b.i.d. as needed for spasm. 2. Gabapentin 300 mg p.o. t.i.d. 3. Metoprolol tartrate 50 mg p.o. twice daily. 4. Fentanyl patch 50 mcg transdermal patch changed every 3 days. 5. Keppra 500 mg p.o. twice daily. 6. Oxycodone 15 mg p.o. q.4 hours as needed for pain. MEDICATION CHANGES: Decrease metoprolol to 50 mg twice daily. CARLOS MINA [id number]/[facility] #: [id number] MTDD
--- NOTE | 2016-02-25 03:01 | DS ---
ADDENDUM NOW INLCUDED ON THIS REPORT DISCHARGE SUMMARY: DATE OF ADMISSION: 02/19/16 DATE OF DISCHARGE: 02/24/16 PRIMARY CARE PROVIDER: JAMES Tirado - to be established with care 03/01/16. CONSULTING NEUROLOGIST: Ulysses Beatty MD DISCHARGING PROVIDER: CARLOS Mina SUPERVISING PHYSICIAN: DO Kiya Crespo (dictated by CARLOS Mina) PRIMARY DISCHARGE DIAGNOSIS: Multiple sclerosis flare. SECONDARY DISCHARGE DIAGNOSES: 1. Seizure disorder - well controlled. 2. Chronic neck pain. 3. Chronic opioid use. 4. History of migraines. 5. Hypertension. HOSPITAL IMAGIN. MRI of the brain of 02/19/16 shows multiple bilateral periventricular supratentorial white matter lesions with involvement of the corpus callosum and septal callosal interface with multiple lesions oriented perpendicular through the corpus callosum consistent with multiple sclerosis given the clinical context. None of the lesions demonstrate enhancement; however, on the post- contrast series, it indicate an acute demyelinating lesion. 2. Cervical spine MRI shows no cord lesions. There is congenital anomaly with narrowing of C5 and 6 through C7 and T1 disk spaces. Evidence of prior fusion procedure and acquired foraminal stenosis at C3-4 and C4-5. 3. Chest x-ray shows no acute process. HOSPITAL COURSE: This is a 40-year-old gentleman with a history of multiple sclerosis as well as chronic pain related to his neck who presented to the emergency department with complaints of left lower extremity pain and left- sided weakness. The patient reported that these symptoms are consistent with his prior multiple sclerosis flares. The patient has received the majority of his prior care through the [facility] and has had multiple admissions even in the last month at [facility] for MS flares. He received anywhere from 1 to 3 days of Solu-Medrol and has previously been followed by Dr. Avery, neurologist, in the [facility]. The patient stated that he is planning on moving to the [facility] and wish to establish his care through the [facility] and thus presented to [facility] for care. Reviewed records from [facility] and patient has been on multiple disease modifying agents including interferon theta, Tecfidera, and Copaxone. Apparently, he had multiple intolerances of these medications. He was most recently prescribed Aubagio, which he has been unable to fill and has not been on a disease-modifying agent in several months. The patient underwent an MRI of his brain, which did show multiple periventricular white matter lesions consistent with MS, but none were enhancing to suggest that this is acute in nature. Nonetheless, the patient was treated for an acute flare of his MS with IV Solu-Medrol for a total of 5 days. There was some concern in regards to inconsistencies in history that the patient would provide versus observed functionality from nursing staff. The patient seems to be able to ambulate independently without any difficulty when there was no one seemingly observing him, but often complained of severe pain and weakness when a staff member would enter the room. At the time of discharge , the patient demonstrated 4/5 strength in left upper and left lower extremity and pain was adequately controlled with his regimen. DISCHARGE PLAN AND DISPOSITION: The patient is being discharged to the hospital to home, where he lives with his son. Dr. Beatty has agreed to provide Neurology care for him. The patient has made an appointment with David Tobar, Nurse Practitioner, to establish primary care in the [facility]. No new prescriptions were provided at discharge, but refills of all of his chronic medications for a total of 30 days were supplied. CARLOS MINA ADDENDUM: DISCHARGE MEDICATIONS: 1. Flexeril 10 mg p.o. b.i.d. as needed for spasm. 2. Gabapentin 300 mg p.o. t.i.d. 3. Metoprolol tartrate 50 mg p.o. twice daily. 4. Fentanyl patch 50 mcg transdermal patch changed every 3 days. 5. Keppra 500 mg p.o. twice daily. 6. Oxycodone 15 mg p.o. q.4 hours as needed for pain. MEDICATION CHANGES: Decrease metoprolol to 50 mg twice daily. CARLOS MINA CC: Dr. Beatty; David Tobar, JAMES* [id number]/[facility] #: [id number]/[facility] #: [id number] [facility]
== END 2016-02-24 13:35 | disposition home health service (06) | DRG 60 ==
LOC: ED 12:06 → MED 17:35 → OBSVTOIN 02-20 15:45
PROVIDERS: ADMIT Internal Medicine; ATTEND Hospitalist
DX: G35 Multiple sclerosis (principal); G89.29 Other chronic pain; M54.12 Radiculopathy, cervical region; D72.829 Elevated white blood cell count, unspecified; M25.80 Other specified joint disorders, unspecified joint; G40.909 Epilepsy, unspecified, not intractable, without status epilepticus; M54.2 Cervicalgia; F11.90 Opioid use, unspecified, uncomplicated; G43.909 Migraine, unspecified, not intractable, without status migrainosus; M48.02 Spinal stenosis, cervical region; Q76.49 Other congenital malformations of spine, not associated with scoliosis; Z88.8 Allergy status to other drugs, medicaments and biological substances; Z98.1 Arthrodesis status; Z83.3 Family history of diabetes mellitus; Z82.49 Family history of ischemic heart disease and other diseases of the circulatory system
CPT/HCPCS: 36415; 70553; 71010; 72141; 80048; 80053; 80307; 80320; 81003; 81015; 82550; 82553; 83605; 83690; 83735; 84443; 84484; 85025; 85610; 85730; 86140; 87040; 87086; 93005; A9270-GY; A9579; G0378; G0480; J1644; J2270; J2405; J2930

== ENCOUNTER 2016-02-26 21:33 | Inpatient (IN) | payer MEDICARE, MEDICAID ==
[2016-02-26] MEDS ORDERED: Aspirin Low Dose CHEW TAB* 81 MG PO ONE (22:00)
[2016-02-26] MEDS ORDERED: Aspirin TAB* 325 MG PO ONE (22:01)
[2016-02-26] MEDS ORDERED: HYDROmorphone INJ* 2 MG/ML CARPUJECT SYRINGE IV SLOW PU ONE ×2 (22:01→23:53)
[2016-02-26] MEDS ORDERED: methylPREDNISolone 125 MG* 2 ML VIAL IV ONE (22:01)
[2016-02-26 22:34] LABS: Hematocrit 41 % (42-52); Hemoglobin 13.5 g/dl (14.0-18.0); Mean Corpuscular HGB Conc 33 g/dl (31-36); Mean Corpuscular Hemoglobin 30 pg (27-31); Mean Corpuscular Volume 90 fL (80-94); Mean Platelet Volume 10 um3 (7.4-10.4); Red Blood Count 4.57 10^6/ul (4.0-5.4); Red Cell Distribution Width 14 % (10.5-15); White Blood Count 20.7 10^3/ul (3.5-10.8)
[2016-02-26 22:37] LABS: Add Diff/Slide Review? Slide Review Added; Comments Flag Yes
[2016-02-26 22:53] LABS: ALT 53 U/L (7-52); Albumin 3.5 g/dL (3.2-5.2); Alkaline Phosphatase 78 U/L (34-104); BUN/Creatinine Ratio 8.8 (8-20); Blood Urea Nitrogen 9 mg/dL (6-24); CO2 Carbon Dioxide 27 mmol/L (22-32); Calcium 8.9 mg/dL (8.6-10.3); Chloride 101 mmol/L (101-111); EGFR African American 103.5 (>60); EGFR Non-African American 80.5 (>60); Globulin 2.7 g/dL (2-4); Glucose 131 mg/dL (70-100); Sodium 135 mmol/L (133-145); Total Protein 6.2 g/dL (6.4-8.9)
[2016-02-26 22:54] LABS: Troponin I 0.01 ng/mL (<0.04)
[2016-02-26] MEDS ORDERED: Iohexol 350* (CONTRAST) 500 ML MDV IV ONE (23:02)
[2016-02-26] MEDS ORDERED: LORazepam INJ* 2 MG/ML 1 ML VIAL IV PUSH ONE (23:02)
--- NOTE | 2016-02-26 23:14 | RAD ---
Indication: Chest pain. Single frontal view of the chest performed at 2207 hours was reviewed. Comparison is made with previous exam dated February 19, 2016. No mediastinal shift is noted. Heart is of normal size and configuration. Lung lane appear clear. IMPRESSION: NO ACTIVE CARDIOPULMONARY DISEASE IS NOTED.
[2016-02-26] MEDS ORDERED: Zolpidem TAB* 10 MG PO ONE (23:52)
[2016-02-27] MEDS ORDERED: Aspirin Low Dose CHEW TAB* 81 MG ONE (00:10)
[2016-02-27 00:49] LABS: Urine Bilirubin Negative (Negative); Urine Glucose Negative (Negative); Urine Nitrite Negative (Negative)
[2016-02-27] MEDS ORDERED: Ondansetron INJ* 2 MG/ML VIAL IV PRN (03:14)
[2016-02-27] MEDS ORDERED: Melatonin (NF) 3 MG TAB PO PRN (03:14)
[2016-02-27] MEDS ORDERED: NS 0.9% 1000 ML* 1,000 ML IV SCH (03:15)
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
[2016-02-27 03:31] LABS: TSH (Thyroid Stimulating Horm) 2.49 mcIU/mL (0.34-5.60)
[2016-02-27] MEDS: oxyCODONE TAB* 5 MG TAB PO PRN ×5 (03:52→20:26)
[2016-02-27] MEDS ORDERED: fentaNYL PATCH 50 MCG/HR TRANSDERM SCH ×2 (04:00→18:00)
[2016-02-27] MEDS: Omeprazole CAP* 20 MG PO SCH (05:18)
[2016-02-27 06:03] LABS: Hematocrit 41 % (42-52); Hemoglobin 13.5 g/dl (14.0-18.0); Mean Corpuscular HGB Conc 33 g/dl (31-36); Mean Corpuscular Hemoglobin 30 pg (27-31); Mean Corpuscular Volume 90 fL (80-94); Mean Platelet Volume 10 um3 (7.4-10.4); Red Cell Distribution Width 14 % (10.5-15)
[2016-02-27 06:13] LABS: BUN/Creatinine Ratio 12.2 (8-20); Calcium 9.2 mg/dL (8.6-10.3); EGFR African American 108.4 (>60); EGFR Non-African American 84.3 (>60); Potassium 4.2 mmol/L (3.5-5.0)
[2016-02-27] MEDS: fentaNYL Patch Check Q Shift 1 NOTE SCH ×2 (06:45→17:35)
[2016-02-27] MEDS: Docusate CAP* 100 MG PO SCH ×2 (07:29→20:25)
--- NOTE | 2016-02-27 07:42 | RAD ---
INDICATION: Chest pain. Short of breath. Evaluate for pulmonary embolus. COMPARISON: Chest x-ray February 26, 2016 TECHNIQUE: Axial source images were obtained from the thoracic inlet to the hemidiaphragms following administration of [address] angiographic technique was utilized. Coronal and sagittal reconstructed images were acquired. CHEST FINDINGS: Neck/thyroid: The visualized neck to include the thyroid appear normal. Chest wall: There are no acute abnormalities of the bony thorax or chest wall. There is no supraclavicular, infraclavicular, or axillary lymphadenopathy. Lungs : There are no pulmonary parenchymal masses or infiltrates. There is mild gravity dependent atelectasis. There are multiple tiny blebs. The pulmonary interstitium appears normal. There are no endobronchial lesions. Cardiomediastinal structures: There is no CT evidence of acute pulmonary embolic disease. The heart is normal in size. There is a tiny pericardial effusion. There is no evidence of aortic aneurysm or dissection. There is no mediastinal or hilar adenopathy. The esophagus appears normal. Pleura : Small bilateral pleural effusions. Other: None. IMPRESSION: 1. No CT evidence of acute pulmonary embolic disease. 2. Small bilateral pleural effusions. Tiny pericardial effusion.
[2016-02-27] MEDS: Metoprolol Tartrate TAB* 50 mg PO SCH ×2 (08:00→23:41)
[2016-02-27] MEDS: levETIRAcetam TAB* 500 MG PO SCH ×2 (08:00→20:26)
[2016-02-27] MEDS: Acetaminophen TAB* 325 MG PO PRN ×2 (08:01→16:22)
[2016-02-27] MEDS: Aspirin TAB* 325 MG PO SCH (08:01)
[2016-02-27] MEDS: Gabapentin CAP(*) 300 MG PO SCH ×3 (08:02→21:03)
[2016-02-27] MEDS ORDERED: Gadoteridol* (CONTRAST) 279.3 MG/ML 10 ML IV ONE (16:33)
[2016-02-27] MEDS: fentaNYL PATCH 50 MCG/HR TRANSDERM SCH (17:44)
--- NOTE | 2016-02-27 17:59 | RAD ---
Indication: Admitted with palpitations and chest pain. Question MS flare. Comparison: February 19, 2016 cervical spine MRI. February 26, 2016 CT angiogram chest. Technique: [employer] 1.5 Laine [id number] with GEM suite. Pre and postcontrast MRI thoracic spine. 18 mL ProHance administered IV. Report: Artifact from cerclage wire at the posterior elements at the cervicothoracic junction. Normal bone marrow signal throughout the [id number]. Normal alignment. No disc herniation or spinal stenosis evident at any level. At the T3 level there is a 1.0 cm cephalocaudal by 2 mm diameter mildly T2 hyperintense lesion at the RIGHT margin of the thoracic spinal cord which demonstrates subtle enhancement on the postcontrast series suspicious for an acute demyelinating lesion. No additional lesions evident within the cervical cord. IMPRESSION: The constellation of findings given history of multiple sclerosis is concerning for a subtle acute demyelinating lesion at the RIGHT margin of the thoracic spinal cord at the T3 level.
--- NOTE | 2016-02-27 18:48 | PN ---
Subjective Date of Service: 02/27/16 Interval History: Pt stated that his pain management doctor was in [place], he lives in [place] and his recent hospitalizations were at [facility]. He is chronically weak on left and uses a cane. In the past several days he has been weaker on left side than before. C/o chronic pain and left arm weakness due to c spine injury and surgery for it at age 10. Chronic anesthesia is noted in left leg Objective Active Medications: Acetaminophen (Tylenol Tab*) 650 mg PO Q6H PRN PRN Reason: FEVER/PAIN Last Admin: 02/27/16 16:22 Dose: 650 mg Aspirin (Aspirin Tab*) 325 mg PO DAILY [facility] Last Admin: 02/27/16 08:01 Dose: 325 mg Cyclobenzaprine HCl (Flexeril Tab*) 10 mg PO BID PRN PRN Reason: SPASMS Docusate Sodium (Colace Cap*) 200 mg PO BID [facility] Last Admin: 02/27/16 07:29 Dose: Not Given Fentanyl (Duragesic Patch 50 Mcg/Hr*) 50 mcg TRANSDERM Q72H [facility] Last Admin: 02/27/16 17:44 Dose: 50 mcg Gabapentin (Neurontin Cap(*)) 300 mg PO TID [facility] Last Admin: 02/27/16 13:35 Dose: 300 mg Levetiracetam (Keppra Tab*) 500 mg PO BID [facility] Last Admin: 02/27/16 08:00 Dose: 500 mg Melatonin (Melatonin (Nf)) 3 mg PO BEDTIME PRN; Protocol PRN Reason: Sleep Metoprolol Tartrate (Lopressor Tab*) 50 mg PO BID [facility] Last Admin: 02/27/16 08:00 Dose: 50 mg Omeprazole (Prilosec Cap*) 20 mg PO DAILY@0600 [facility] Last Admin: 02/27/16 05:18 Dose: 20 mg Ondansetron HCl (Zofran Inj*) 4 mg IV Q6H PRN PRN Reason: NAUSEA Oxycodone HCl (Roxycodone Tab*) 15 mg PO Q4H PRN PRN Reason: PAIN Last Admin: 02/27/16 16:22 Dose: 15 mg Pharmacy Profile Note (Fentanyl Patch Check Q Shift) 1 note N/A 0700,1900 [facility] Last Admin: 02/27/16 17:35 Dose: 1 note Vital Signs 02/27/16 02/27/16 02/27/16 00:30 01:00 01:30 Temperature Pulse Rate 90 Respiratory 0 20 20 Rate Blood Pressure 120/78 114/76 106/73 (mmHg) O2 Sat by Pulse 96 Oximetry 02/27/16 02/27/16 02/27/16 02:00 02:48 03:21 Temperature 97.7 F 97.7 F Pulse Rate 90 100 100 Respiratory 21 20 20 Rate Blood Pressure 112/77 131/87 131/87 (mmHg) O2 Sat by Pulse 97 97 Oximetry 02/27/16 02/27/16 02/27/16 03:52 03:53 04:54 Temperature 98.3 F Pulse Rate 107 Respiratory 20 20 20 Rate Blood Pressure 131/82 (mmHg) O2 Sat by Pulse 99 Oximetry 02/27/16 02/27/16 02/27/16 05:29 07:41 07:50 Temperature 97.8 F Pulse Rate 92 Respiratory 20 18 15 Rate Blood Pressure 129/82 (mmHg) O2 Sat by Pulse 96 96 Oximetry 02/27/16 02/27/16 02/27/16 08:00 08:02 10:02 Temperature Pulse Rate Respiratory 15 16 Rate Blood Pressure (mmHg) O2 Sat by Pulse 96 Oximetry 02/27/16 02/27/16 02/27/16 11:28 12:04 13:35 Temperature 97.9 F Pulse Rate 70 Respiratory 14 16 Rate Blood Pressure 114/64 (mmHg) O2 Sat by Pulse 94 Oximetry 02/27/16 02/27/16 02/27/16 14:04 15:06 16:00 Temperature 97.7 F Pulse Rate 82 Respiratory 16 17 Rate Blood Pressure 93/53 (mmHg) O2 Sat by Pulse 97 97 Oximetry 02/27/16 02/27/16 16:22 17:44 Temperature Pulse Rate Respiratory 16 16 Rate Blood Pressure (mmHg) O2 Sat by Pulse Oximetry Oxygen Devices in Use Now: None Appearance: 40 yo M in nAD, aAOx3 Eyes: No Scleral Icterus, PERRLA Ears/Nose/Mouth/Throat: NL Teeth, Lips, Gums, Mucous Membranes Moist Neck: NL Appearance and Movements; NL JVP, Trachea Midline Respiratory: Symmetrical Chest Expansion and Respiratory Effort, Clear to Auscultation Cardiovascular: NL Sounds; No Murmurs; No JVD Abdominal: NL Sounds; No Tenderness; No Distention Lymphatic: No Cervical Adenopathy Extremities: No Edema, No Clubbing, Cyanosis Skin: No Rash or Ulcers, No Nodules or Sclerosis Neurological: Alert and Oriented x 3, - - left arm weakness at 4+/5, left finger to nose dysmetric by 4 cm. Left LE weakness at 4/5 Result Diagrams: 02/27/16 05:00 02/27/16 05:00 Assess/Plan/Problems-Billing Assessment: 40 yo M with h/o chronic pain, c spine injury, chronic left sided weakness, hospitalized last week for MS exacerbation comes back for more pain and weakness. - Patient Problems (1) Multiple sclerosis Comment: With acute flare noted on T spine MRI. D/w Dr. Ramirez, will give another dose of V Solu Medrol and await further recommendations. Neurology following He has had multiple admissions in the last month at [facility] Patient has been prescribed Aubagio, but has not started this medication at home (2) Chronic back pain Comment: Continue home Fentanyl patch, gabapentin, oxycodone . Pt agrees to continuation of home doses of narcotics and no escalation opioid tx that could be detrimental to his health. (3) Seizure disorder Comment: Cont Keppra No seizure activity noted (4) DVT prophylaxis Comment: SQ heparin (5) Leukocytosis Comment: Afebrile, UA negative. No other s/s of systemic infection. Likely leukemoid reaction from previous steroid administration. Status and Disposition: inpatient for MS exacerbation
[2016-02-27] MEDS ORDERED: NS 0.9% 250 ML* 250 ML ONE (19:10)
[2016-02-27] MEDS ORDERED: methylPREDNISolone SOD SUCC* 1,000 MG in NS 0.9% 250 ML* 250 ML IVPB ONE (19:30)
[2016-02-27] MEDS: Heparin VIAL(*) 5000 UNITS/ML VIAL (FIVE THOUSAND) SUBCUT SCH ×2 (20:26→20:30)
[2016-02-27] MEDS: Zolpidem TAB* 10 MG PO PRN (23:49)
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
[2016-02-28] MEDS: oxyCODONE TAB* 5 MG TAB PO PRN ×5 (00:50→20:15)
[2016-02-28] MEDS: Heparin VIAL(*) 5000 UNITS/ML VIAL (FIVE THOUSAND) SUBCUT SCH ×3 (05:02→20:15)
[2016-02-28] MEDS: Omeprazole CAP* 20 MG PO SCH (05:23)
[2016-02-28] MEDS: fentaNYL Patch Check Q Shift 1 NOTE SCH ×3 (06:43→18:58)
[2016-02-28 06:57] LABS: Hematocrit 37 % (42-52); Hemoglobin 12.2 g/dl (14.0-18.0); Mean Corpuscular HGB Conc 33 g/dl (31-36); Mean Corpuscular Hemoglobin 30 pg (27-31); Mean Corpuscular Volume 91 fL (80-94); Mean Platelet Volume 10 um3 (7.4-10.4); Red Blood Count 4.11 10^6/ul (4.0-5.4); Red Cell Distribution Width 14 % (10.5-15); White Blood Count 18.8 10^3/ul (3.5-10.8)
[2016-02-28 07:10] LABS: BUN/Creatinine Ratio 22.7 (8-20); Calcium 9.2 mg/dL (8.6-10.3); EGFR African American 122.7 (>60); EGFR Non-African American 95.4 (>60); Potassium 4.6 mmol/L (3.5-5.0)
[2016-02-28] MEDS: Aspirin TAB* 325 MG PO SCH (07:18)
[2016-02-28] MEDS: Gabapentin CAP(*) 300 MG PO SCH ×4 (07:18→21:27)
[2016-02-28] MEDS: levETIRAcetam TAB* 500 MG PO SCH ×2 (07:19→20:15)
[2016-02-28] MEDS: Metoprolol Tartrate TAB* 50 mg PO SCH ×2 (07:19→20:15)
[2016-02-28] MEDS: Docusate CAP* 100 MG PO SCH ×2 (07:20→20:15)
--- NOTE | 2016-02-28 10:43 | PN ---
Subjective Date of Service: 02/28/16 Interval History: Pt stated that he is "sweating" because he needs pain medications. When asked if he is withdrawing and if he is taking more pain meds than prescribed at home , pt corrected himself and said that the "sweats" are from Solu Medrol. C/o chronic pain in left leg. Feels "a little better today". As per d/w RN pt refused to get out of bed today and had been refusing SCD's and heparin sc Last BM today Objective Active Medications: Acetaminophen (Tylenol Tab*) 650 mg PO Q6H PRN PRN Reason: FEVER/PAIN Last Admin: 02/27/16 16:22 Dose: 650 mg Aspirin (Aspirin Tab*) 325 mg PO DAILY [facility] Last Admin: 02/28/16 07:18 Dose: 325 mg Cyclobenzaprine HCl (Flexeril Tab*) 10 mg PO BID PRN PRN Reason: SPASMS Docusate Sodium (Colace Cap*) 200 mg PO BID [facility] Last Admin: 02/28/16 07:20 Dose: Not Given Fentanyl (Duragesic Patch 50 Mcg/Hr*) 50 mcg TRANSDERM Q72H [facility] Last Admin: 02/27/16 17:44 Dose: 50 mcg Gabapentin (Neurontin Cap(*)) 300 mg PO TID [facility] Last Admin: 02/28/16 07:18 Dose: 300 mg Heparin Sodium (Porcine) (Heparin Vial(*)) 5,000 units SUBCUT Q8HR [facility] Last Admin: 02/28/16 05:02 Dose: Not Given Levetiracetam (Keppra Tab*) 500 mg PO BID [facility] Last Admin: 02/28/16 07:19 Dose: 500 mg Melatonin (Melatonin (Nf)) 3 mg PO BEDTIME PRN; Protocol PRN Reason: Sleep Metoprolol Tartrate (Lopressor Tab*) 50 mg PO BID [facility] Last Admin: 02/28/16 07:19 Dose: 50 mg Omeprazole (Prilosec Cap*) 20 mg PO DAILY@0600 [facility] Last Admin: 02/28/16 05:23 Dose: 20 mg Ondansetron HCl (Zofran Inj*) 4 mg IV Q6H PRN PRN Reason: NAUSEA Oxycodone HCl (Roxycodone Tab*) 15 mg PO Q4H PRN PRN Reason: PAIN Last Admin: 02/28/16 07:20 Dose: 15 mg Pharmacy Profile Note (Fentanyl Patch Check Q Shift) 1 note N/A 0700,1900 JOSE M Last Admin: 02/28/16 06:43 Dose: 1 note Zolpidem Tartrate (Ambien Tab*) 10 mg PO BEDTIME PRN PRN Reason: INSOMNIA Last Admin: 02/27/16 23:49 Dose: 10 mg Vital Signs 02/27/16 02/27/16 02/27/16 11:28 12:04 13:35 Temperature 97.9 F Pulse Rate 70 Respiratory 14 16 Rate Blood Pressure 114/64 (mmHg) O2 Sat by Pulse 94 Oximetry 02/27/16 02/27/16 02/27/16 14:04 15:06 16:00 Temperature 97.7 F Pulse Rate 82 Respiratory 16 17 Rate Blood Pressure 93/53 (mmHg) O2 Sat by Pulse 97 97 Oximetry 02/27/16 02/27/16 02/27/16 16:22 17:44 18:22 Temperature Pulse Rate Respiratory 16 16 16 Rate Blood Pressure (mmHg) O2 Sat by Pulse Oximetry 02/27/16 02/27/16 02/27/16 19:30 20:00 20:26 Temperature 98.1 F Pulse Rate 97 Respiratory 17 18 18 Rate Blood Pressure 93/50 (mmHg) O2 Sat by Pulse 93 Oximetry 02/27/16 02/27/16 02/27/16 21:03 22:26 23:03 Temperature Pulse Rate Respiratory 18 17 18 Rate Blood Pressure (mmHg) O2 Sat by Pulse Oximetry 02/27/16 02/28/16 02/28/16 23:30 00:50 02:50 Temperature 98.1 F Pulse Rate 87 Respiratory 16 18 19 Rate Blood Pressure 111/68 (mmHg) O2 Sat by Pulse 96 Oximetry 02/28/16 02/28/16 02/28/16 03:18 07:13 07:18 Temperature 98.0 F 98.3 F Pulse Rate 81 81 Respiratory 16 18 18 Rate Blood Pressure 105/69 112/61 (mmHg) O2 Sat by Pulse 95 95 Oximetry 02/28/16 02/28/16 02/28/16 07:20 08:00 09:18 Temperature Pulse Rate Respiratory 18 18 16 Rate Blood Pressure (mmHg) O2 Sat by Pulse Oximetry 02/28/16 09:36 Temperature Pulse Rate Respiratory Rate Blood Pressure (mmHg) O2 Sat by Pulse 95 Oximetry Oxygen Devices in Use Now: None Appearance: 40 yo M in nAD, aAOx3 Eyes: No Scleral Icterus, PERRLA Ears/Nose/Mouth/Throat: NL Teeth, Lips, Gums, Mucous Membranes Moist Neck: NL Appearance and Movements; NL JVP, Trachea Midline Respiratory: Symmetrical Chest Expansion and Respiratory Effort, Clear to Auscultation Cardiovascular: NL Sounds; No Murmurs; No JVD, RRR Abdominal: NL Sounds; No Tenderness; No Distention Lymphatic: No Cervical Adenopathy Extremities: No Edema, No Clubbing, Cyanosis Skin: No Rash or Ulcers, No Nodules or Sclerosis Neurological: Alert and Oriented x 3, - - left leg weakness-unable to raise off bed. Left arm weakness at 4+/5, speech clear. No R sided deficits Result Diagrams: 02/28/16 06:36 02/28/16 06:36 Assess/Plan/Problems-Billing Assessment: 40 yo M with h/o chronic pain, c spine injury, chronic left sided weakness, hospitalized last week for MS exacerbation comes back for more pain and weakness. - Patient Problems (1) Multiple sclerosis Comment: With acute flare noted on T spine MRI. D/w Dr. Ramirez, s/p 1 gram of Solu Medrol on 02/27/16, plan x 1 more dose Neurology following He has had multiple admissions in the last month at [facility]. From I STOP pt had been also prescribed pain meds from [facility] Primary care (Dr. Mcleod) and [facility] Pain management clinic([phone]- closed today) in [place], [place]. Patient has been prescribed Aubagio, but has not started this medication at home (2) Chronic back pain Comment: Continue home Fentanyl patch, oxycodone . will increase gabapentin Pt agrees to continuation of home doses of narcotics and no escalation opioid tx that could be detrimental to his health. (3) Seizure disorder Comment: Cont Keppra No seizure activity noted (4) DVT prophylaxis Comment: SQ heparin- pt had been refusing (5) Leukocytosis Comment: Afebrile, UA negative. No other s/s of systemic infection. Likely leukemoid reaction from previous steroid administration. Status and Disposition: inpatient for MS exacerbation
[2016-02-28] MEDS ORDERED: methylPREDNISolone SOD SUCC* 1,000 MG in NS 0.9% 1000 ML* 1,000 ML IVPB ONE (11:00)
[2016-02-28] MEDS ORDERED: Gabapentin CAP(*) 400 MG PO SCH (14:00)
[2016-02-28] MEDS: fentaNYL PATCH 50 MCG/HR TRANSDERM SCH (17:31)
[2016-02-28] MEDS: Zolpidem TAB* 10 MG PO PRN (21:27)
[2016-02-29] MEDS: oxyCODONE TAB* 5 MG TAB PO PRN ×6 (00:38→21:14)
[2016-02-29] MEDS: Heparin VIAL(*) 5000 UNITS/ML VIAL (FIVE THOUSAND) SUBCUT SCH ×3 (04:48→21:15)
[2016-02-29] MEDS: Omeprazole CAP* 20 MG PO SCH (05:26)
[2016-02-29] MEDS: fentaNYL Patch Check Q Shift 1 NOTE SCH ×2 (06:40→19:40)
[2016-02-29] MEDS: levETIRAcetam TAB* 500 MG PO SCH ×2 (08:10→21:12)
[2016-02-29] MEDS: Aspirin TAB* 325 MG PO SCH (08:10)
[2016-02-29] MEDS: Gabapentin CAP(*) 300 MG PO SCH ×4 (08:11→21:13)
[2016-02-29] MEDS: Cyclobenzaprine TAB* 10 MG PO PRN (08:12)
[2016-02-29] MEDS: Metoprolol Tartrate TAB* 50 mg PO SCH ×2 (08:12→21:20)
[2016-02-29] MEDS: Docusate CAP* 100 MG PO SCH ×2 (08:14→21:15)
[2016-02-29] MEDS ORDERED: fentaNYL PATCH 25 MCG/HR TRANSDERM SCH (11:00)
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
[2016-02-29] MEDS: Zolpidem TAB* 10 MG PO PRN (21:19)
[2016-03-01] MEDS: oxyCODONE TAB* 5 MG TAB PO PRN ×3 (06:10→14:30)
[2016-03-01] MEDS: Omeprazole CAP* 20 MG PO SCH (06:10)
[2016-03-01] MEDS: Heparin VIAL(*) 5000 UNITS/ML VIAL (FIVE THOUSAND) SUBCUT SCH ×2 (06:11→14:32)
[2016-03-01] MEDS: Cyclobenzaprine TAB* 10 MG PO PRN (06:11)
[2016-03-01] MEDS: fentaNYL Patch Check Q Shift 1 NOTE SCH ×2 (07:20→10:45)
[2016-03-01 10:00] VITALS: BP 117/74
[2016-03-01] MEDS: Aspirin TAB* 325 MG PO SCH (10:06)
[2016-03-01] MEDS: Metoprolol Tartrate TAB* 50 mg PO SCH (10:06)
[2016-03-01] MEDS: levETIRAcetam TAB* 500 MG PO SCH (10:06)
[2016-03-01] MEDS: Gabapentin CAP(*) 300 MG PO SCH ×2 (10:06→14:30)
[2016-03-01] MEDS: Docusate CAP* 100 MG PO SCH (10:07)
[2016-03-01] MEDS: fentaNYL PATCH 50 MCG/HR TRANSDERM SCH (17:43)
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
--- NOTE | 2016-03-03 07:46 | ED ---
Hasmukh Casas Michael, scribed for Smooth Dyer MD on 02/26/16 at 2222 . HPI Chest Pain - HPI Summary HPI Summary: 40 y/o male comes to the ED presenting with constant mid sternal chest pain that started this afternoon at 1200. The pt describes the chest pain as pressure , and it is aggravated with deep breathes. He also c/o fever and numbness in his LLE that is radiating to the top of this RLE. He has a hx of leg numbness due to MS. The pt has had multiple falls due to weakness and numbness in his lower extremities. He denies diaphoresis and chills. The FHx is significant for cardiac disease. - History of Current Complaint Chief Complaint: EDChestPainROMI Time Seen by Provider: 02/26/16 21:48 Hx Obtained From: Patient, Medical Records Onset/Duration: Started Hours Ago, Still Present Timing: Constant Initial Severity: Moderate Current Severity: Moderate Chest Pain Location: Mid Sternal Character: Pressure/Squeezing Aggravating Factor(s): Deep Breaths Associated Signs and Symptoms: Positive: Negative - diaphoresis and chills, Chest Pain, Numbness - LLE-spreading to RLE, Weakness - bilat LE, Fever - Allergy/Home Medications Allergies/Adverse Reactions: Allergies Allergy/AdvReac Type Severity Reaction Status Date / Time Meloxicam Allergy Severe See Comment Verified 02/19/16 12:25 PMH/Surg Hx/FS Hx/Imm Hx Endocrine/Hematology History: Denies: Hx Diabetes Cardiovascular History: Denies: Hx Hypertension, Hx Pacemaker/ICD Respiratory History: Denies: Hx Asthma History: Denies: Hx Renal Disease Musculoskeletal History: Reports: Hx Arthritis - neck, Other Musculoskeletal History Sensory History: Reports: Hx Contacts or Glasses Denies: Hx Hearing Aid Opthamlomology History: Reports: Hx Contacts or Glasses Neurological History: Reports: Hx Migraine - per patient, Hx Seizures, Other Neuro Impairments/Disorders - MS Psychiatric History: Denies: Hx Panic Disorder - Surgical History Surgery Procedure, Year, and Place: C-Spine FUSION, APPENDECTOMY, BULLET IN LEG REMOVED Infectious Disease History: Denies: Traveled Outside the [place] in Last 30 Days - Family History Known Family History: Positive: Cardiac Disease, Diabetes - Social History Occupation: Employed Full-time Lives: Alone Alcohol Use: None Substance Use Type: Reports: None Hx Tobacco Use: No Smoking Status (MU): Never Smoked Tobacco Review of Systems Positive: Fever. Negative: Chills Negative: Erythema Negative: Sore Throat Positive: Chest Pain Negative: Shortness Of Breath, Cough Negative: Abdominal Pain, Vomiting, Nausea Negative: dysuria, hematuria Negative: Myalgia, Edema - bilat LE Negative: Rash Positive: Weakness, Numbness All Other Systems Reviewed And Are Negative: Yes Physical Exam - Summary Physical Exam Summary: Constitutional: Well-developed, Well-nourished, Alert. (-) Distressed Skin: Warm, Dry HENT: Normocephalic; Atraumatic Eyes: Conjunctiva normal Neck: Musculoskeletal ROM normal neck. (-) JVD, (-) Stridor, (-) Tracheal deviation Cardio: Rhythm regular, rate normal, Heart sounds normal; Intact distal pulses; The pedal pulses are 2+ and symmetric. Radial pulses are 2+ and symmetric. (-) Murmur Pulmonary/Chest wall: Effort normal. (-) Respiratory distress, (-) Wheezes, (-) Rales Abd: Soft, (-) Tenderness, (-) Distension, (-) Guarding, (-) Rebound Musculoskeletal: (-) Edema Lymph: (-) Cervical adenopathy Neuro: Alert, Oriented x3, diminished sensation LLE and can move toes unable to flex hip or lift leg of the bed Psych: Mood and affect Normal Triage Information Reviewed: Yes Vital Signs On Initial Exam: Initial Vitals Pulse Resp BP Pulse Ox 134 20 106/70 96 02/26/16 22:00 02/26/16 22:00 02/26/16 22:00 02/26/16 22:00 Vital Signs Reviewed: Yes Diagnostics - Vital Signs Vital Signs Temp Pulse Resp BP Pulse Ox 02/27/16 00:03 18 02/27/16 00:02 98 16 100/70 95 02/26/16 23:30 36.7 C 128 20 124/72 95 02/26/16 23:15 18 02/26/16 23:00 108 20 102/81 92 02/26/16 22:30 121 20 102/63 94 02/26/16 22:19 18 02/26/16 22:03 36.8 C 133 18 106/70 95 02/26/16 22:00 134 20 106/70 96 - Laboratory Lab Results: Lab Results 02/26/16 02/26/16 02/26/16 Range/Units 22:21 22:21 22:21 WBC 20.7 H (3.5-10.8) 10^3/ul RBC 4.57 (4.0-5.4) 10^6/ul Hgb 13.5 L (14.0-18.0) g/dl Hct 41 L (42-52) % MCV 90 (80-94) fL MCH 30 (27-31) pg MCHC 33 (31-36) g/dl RDW 14 (10.5-15) % Plt Count 266 (150-450) 10^3/ul MPV 10 (7.4-10.4) um3 Neut % (Auto) 77.4 (38-83) % Lymph % (Auto) 15.1 L (25-47) % [place] % (Auto) 5.6 (1-9) % Eos % (Auto) 1.3 (0-6) % Baso % (Auto) 0.6 (0-2) % Absolute Neuts (auto) 16.1 H (1.5-7.7) 10^3/ul Absolute Lymphs (auto) 3.1 (1.0-4.8) 10^3/ul Absolute Monos (auto) 1.2 H (0-0.8) 10^3/ul Absolute Eos (auto) 0.3 (0-0.6) 10^3/ul Absolute Basos (auto) 0.1 (0-0.2) 10^3/ul Absolute Nucleated RBC 0.01 10^3/ul Nucleated RBC % 0.1 Sodium 135 (133-145) mmol/L Potassium TNP Chloride 101 (101-111) mmol/L Carbon Dioxide 27 (22-32) mmol/L Anion Gap TNP BUN 9 (6-24) mg/dL Creatinine 1.02 (0.67-1.17) mg/dL Est GFR ( Amer) 103.5 (>60) Est GFR (Non-Af Amer) 80.5 (>60) BUN/Creatinine Ratio 8.8 (8-20) Glucose 131 H (70-100) mg/dL Lactic Acid 2.5 H* (0.5-2.0) mmol/L Calcium 8.9 (8.6-10.3) mg/dL Total Bilirubin 0.40 (0.2-1.0) mg/dL AST TNP ALT 53 H (7-52) U/L Alkaline Phosphatase 78 (34-104) U/L Troponin I 0.01 (<0.04) ng/mL Total Protein 6.2 L (6.4-8.9) g/dL Albumin 3.5 (3.2-5.2) g/dL Globulin 2.7 (2-4) g/dL Albumin/Globulin Ratio 1.3 (1-3) TSH 2.49 (0.34-5.60) mcIU/mL 02/26/16 Range/Units 23:30 WBC (3.5-10.8) 10^3/ul RBC (4.0-5.4) 10^6/ul Hgb (14.0-18.0) g/dl Hct (42-52) % MCV (80-94) fL MCH (27-31) pg MCHC (31-36) g/dl RDW (10.5-15) % Plt Count (150-450) 10^3/ul MPV (7.4-10.4) um3 Neut % (Auto) (38-83) % Lymph % (Auto) (25-47) % [place] % (Auto) (1-9) % Eos % (Auto) (0-6) % Baso % (Auto) (0-2) % Absolute Neuts (auto) (1.5-7.7) 10^3/ul Absolute Lymphs (auto) (1.0-4.8) 10^3/ul Absolute Monos (auto) (0-0.8) 10^3/ul Absolute Eos (auto) (0-0.6) 10^3/ul Absolute Basos (auto) (0-0.2) 10^3/ul Absolute Nucleated RBC 10^3/ul Nucleated RBC % Sodium (133-145) mmol/L Potassium 3.4 L Chloride (101-111) mmol/L Carbon Dioxide (22-32) mmol/L Anion Gap BUN (6-24) mg/dL Creatinine (0.67-1.17) mg/dL Est GFR ( Amer) (>60) Est GFR (Non-Af Amer) (>60) BUN/Creatinine Ratio (8-20) Glucose (70-100) mg/dL Lactic Acid (0.5-2.0) mmol/L Calcium (8.6-10.3) mg/dL Total Bilirubin (0.2-1.0) mg/dL AST 12 L ALT (7-52) U/L Alkaline Phosphatase (34-104) U/L Troponin I (<0.04) ng/mL Total Protein (6.4-8.9) g/dL Albumin (3.2-5.2) g/dL Globulin (2-4) g/dL Albumin/Globulin Ratio (1-3) TSH (0.34-5.60) mcIU/mL Result Diagrams: 02/28/16 06:36 02/28/16 06:36 Lab Statement: Any lab studies that have been ordered have been reviewed, and results considered in the medical decision making process. - Radiology CXR Xray Interpretation: No Acute Changes Radiology Interpretation Completed By: Radiologist - EKG EK EKG Rhythm: Sinus Tachycardia - 134 bpm Chest Pain Course/Dx - Course Course Of Treatment: white count chronically elevated related to steriods. Differential dx PE and coronary syndrome. Discussed with Dr. Allison at 2330 -inpatient status to rule out MS flare, inability to ambulate, Cauda Equina syndrome and coronary syndrome. - Diagnoses Provider Diagnoses: Multiple sclerosis Discharge - Discharge Plan Condition: Improved Disposition: ADMITTED TO [facility] Discharge Disposition Comment: Dr. Allison accepts the pt as an admission. The documentation as recorded by the Hasmukh pitts Michael accurately reflects the service I personally performed and the decisions made by , Smooth Dyer MD.
--- NOTE | 2016-05-21 23:16 | ED ---
Anurag Casas Karl, scribed for Ulysses Martinez MD on 02/27/16 at 0115 . Progress - Progress Note Progress Note: CTA Chest (Radiologist) FINDINGS: There is no evidence of pulmonary embolism. The thoracic aorta is normal in course and caliber without dissection. The heart is upper limits of normal size. Trace pericardial effusion. No pathologically enlarged mediastinal or hilar lymph nodes. The tracheobronchial tree is patent. There are small bilateral pleural effusions. Areas of groundglass density in the dependent portions of both lungs may represent atelectatic changes or possibly pulmonary edema. Scattered small thin-walled parenchymal cysts. No air space consolidation. The spleen is upper limits of normal size measuring 13 cm in greatest transverse dimension. Imaged portions of the upper abdomen are otherwise unremarkable. Course/Dx - Diagnoses Provider Diagnoses: Multiple sclerosis The documentation as recorded by the Anurag pitts Karl accurately reflects the service I personally performed and the decisions made by Juan julian David, MD.
== END 2016-03-01 18:00 | disposition home or self-care (01) | DRG 60 ==
LOC: ED 21:33 → MEDTELE 02-27 00:15
PROVIDERS: ADMIT Hospitalist; ATTEND Internal Medicine
DX: G35 Multiple sclerosis (principal); D72.829 Elevated white blood cell count, unspecified; G89.29 Other chronic pain; G40.909 Epilepsy, unspecified, not intractable, without status epilepticus; R07.9 Chest pain, unspecified; M54.12 Radiculopathy, cervical region; Z79.891 Long term (current) use of opiate analgesic; Z79.899 Other long term (current) drug therapy; Z82.49 Family history of ischemic heart disease and other diseases of the circulatory system; Z83.3 Family history of diabetes mellitus; Z88.6 Allergy status to analgesic agent
CPT/HCPCS: 36415; 71010; 71275; 72157; 80048; 80053; 81003; 83605; 84443; 84484; 85025; 85027; 93005; A9270-GY; A9579; J1170; J1644; J2060; J2930; Q9967

== ENCOUNTER 2016-03-09 07:03 | Emergency (ER) | payer MEDICARE, MEDICAID ==
[2016-03-09] MEDS ORDERED: NS 0.9% 1000 ML* 1,000 ML IV ONE ×3 (07:45→14:30)
[2016-03-09] MEDS ORDERED: cefTRIAXone(*) 1 GM in NS 0.9% 50 ML* 50 ML IVPB ONE (07:46)
[2016-03-09] MEDS ORDERED: HYDROmorphone INJ* 1 MG/ML CARPUJECT SYRINGE IV ONE ×2 (07:57→08:50)
[2016-03-09 08:04] LABS: Hematocrit 46 % (42-52); Hemoglobin 15.2 g/dl (14.0-18.0); Mean Corpuscular HGB Conc 33 g/dl (31-36); Mean Corpuscular Hemoglobin 30 pg (27-31); Mean Corpuscular Volume 92 fL (80-94); Mean Platelet Volume 10 um3 (7.4-10.4); Red Blood Count 5.04 10^6/ul (4.0-5.4); Red Cell Distribution Width 14 % (10.5-15); White Blood Count 13.5 10^3/ul (3.5-10.8)
[2016-03-09 08:16] LABS: Albumin 4.8 g/dL (3.2-5.2); BUN/Creatinine Ratio 9.5 (8-20); Calcium 10.8 mg/dL (8.6-10.3); EGFR African American 100.1 (>60); EGFR Non-African American 77.8 (>60); Globulin 3.8 g/dL (2-4); Total Bilirubin 0.8 mg/dL (0.2-1.0); Total Protein 8.6 g/dL (6.4-8.9)
[2016-03-09 08:19] LABS: Troponin I 0.03 ng/mL (<0.04)
--- NOTE | 2016-03-09 08:28 | RAD ---
HISTORY: Chest pain COMPARISONS: February 26, 2016 VIEWS:1: Single frontal portable view of the chest at 8:08 AM FINDINGS: LINES AND TUBES: None. CARDIOMEDIASTINAL SILHOUETTE: The cardiomediastinal silhouette is normal for portable technique. PLEURA: The costophrenic angles are sharp. No pleural abnormalities are noted. LUNG PARENCHYMA: The lungs are clear. ABDOMEN: The upper abdomen is clear. There is no subphrenic gas. BONES AND SOFT TISSUES: No bone or soft tissue abnormalities are noted. IMPRESSION: NO ACTIVE CARDIOPULMONARY DISEASE.
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
[2016-03-09 12:43] LABS: C Reactive Protein 6.77 mg/L (< 5.00)
[2016-03-09 15:57] VITALS: BP 119/74
--- NOTE | 2016-03-09 16:20 | CONS ---
EMERGENCY DEPARTMENT CONSULTATION: DATE OF CONSULT / DICTATION: 03/09/16 CHIEF COMPLAINT: Sweats and chills as well as increased left-sided pain and weakness. HISTORY OF PRESENT ILLNESS: This is a 40-year-old gentleman with a history of multiple sclerosis as well as chronic pain in his left upper and lower extremities, who has been hospitalized on two occasions in the last month for presumed multiple sclerosis exacerbation. The patient was treated with a course of IV steroids on each occasion. His presenting symptoms on each of those occasions were left-sided pain and weakness. The patient was discharged with a referral to both Pain Management and Neurology after his last hospital stay. He has established with Pain Management per the patient's report and has a scheduled appointment with Neurology the beginning of April, which is approximately 6 weeks away at this time. He is not currently on any disease- modifying medications and reports intolerance to all prior medications tried. The patient reports that starting yesterday morning, he was having profuse sweats and chills. He did not measure fever. He denied any associated cough or shortness of breath. No abdominal pain, nausea, vomiting, or diarrhea. Denies any urinary symptoms. He is currently living at the [facility] and reports various sick contacts, but generally tries to avoid them. He states that he was vaccinated against influenza this year. The patient reports that he has been taking his pain medications as prescribed and has not run out of his medications at home. PAST MEDICAL HISTORY: 1. Multiple sclerosis - previously followed by Dr. Avery out of [place] and now has a pending outpatient appointment with Dr. Beatty. 2. Seizure disorder. 3. Chronic neck and left upper extremity pain. HOME MEDICATIONS: 1. Flexeril 10 mg p.o. b.i.d. as needed for muscle spasm. 2. Gabapentin 300 mg p.o. t.i.d. and an additional 300 mg at bedtime. 3. Metoprolol tartrate 50 mg p.o. b.i.d. 4. Fentanyl patch 75 mcg transdermally, replaced every 3 days. 5. Keppra 500 mg p.o. b.i.d. 6. Oxycodone 15 mg p.o. q.4 hours as needed for pain. SOCIAL HISTORY: The patient is currently living in the homeless intermediate in [facility]. Working on securing more permanent housing. Denies smoking history, regular alcohol consumption, or recreational drugs. He is currently from his . REVIEW OF SYSTEMS: As noted above in HPI. PHYSICAL EXAM: Vitals: Temperature 97.4 degrees Fahrenheit, pulse 119 beats per minute, respiratory rate 20 per minute, oxygen saturation 98% on room air, and blood pressure 135/109 mmHg. General: This is a pleasant, middle-aged male in no acute distress. HEENT: Head is normocephalic and atraumatic. Mucous membranes are pink and moist. Neck: Neck is supple and free of lymphadenopathy. Cardiovascular: Heart has regular rate and rhythm, mildly tachycardic, without murmurs, rubs, or gallops. Respiratory: Lungs are clear to auscultation without wheezes, crackles, or rhonchi. Abdomen: Abdomen is soft and nontender to palpation with bowel sounds present. Neuro: The patient has full range of motion and appropriate strength in left upper extremity. When specifically asked to evaluate the lower extremities, he complains of pain and weakness with objective findings showing that left lower extremity has approximately 3/5 strength and right side is intact. Psych: The patient is alert, appropriately oriented, and is fairly dramatic when presenting his symptoms. DIAGNOSTIC STUDIES/LAB DATA: CBC shows white blood cell count is 13,500, hemoglobin of 15.2, platelet count is 301,000. INR 1.03. Comprehensive metabolic panel is largely unremarkable with sodium of 136 mmol/L, potassium 4.0 mmol/L, serum bicarb 27, BUN of 10, creatinine of 1.05. Glucose: Random glucose of 124 mg per deciliter. Calcium slightly high at 10.8. Transaminases and total bilirubin are essentially within normal limits. Troponin negative at 0.03. CRP only mildly elevated at 6.77. Imaging: EKG shows sinus tachycardia with a rate of about 120 beats per minute. Chest x-ray shows no acute disease. ASSESSMENT AND PLAN: This is a 40-year-old gentleman with history of multiple sclerosis and chronic pain syndrome, who has had multiple hospital admissions in the last month here with complaints of pain and weakness, who presents with increased left-sided pain and weakness as well as tachycardia, chills, and sweats. 1. Concern for possible source of infection - the patient came in tachycardic with complaints of chills and diaphoresis. He does have a mildly elevated white blood cell count; CRP, however, is only 6.7; procalcitonin has been added to original lab, but is still pending. He has no focal symptoms nor does he have focal exam findings. Seems unlikely that he has significant infectious source. Of note, the patient was persistently tachycardic during his original admission and was started on the beta contreras at that time, unsure of how compliant the patient has been with that. 2. Multiple sclerosis - the patient does have lesions appreciated on prior MRI studies. During his prior admission, there were no enhancing lesions to suggest an acute process. That has been questioned whether his previous complaints of increased pain and weakness is truly a flare of his multiple sclerosis versus perhaps appeals representative of desire for admission for secondary gain. The patient has been referred to Dr. Beatty, who saw this patient during his first hospital admission in February. I took the liberty to contact Dr. Beatty's office and he has a scheduled appointment for April 16. I asked that he please be seen sooner in hopes of avoiding further emergency department and hospital admissions. His office should contact the patient tomorrow with hopes of cancellation and schedule within the last week, which I am sure does happens quite frequently. 3. Chronic pain - the patient has been established with Pain Management through [facility] and has scheduled followup. We would not recommend prescribing any additional narcotic medications to this patient. DISPOSITION: Influenza and procalcitonin are pending at this time. Assuming that his procalcitonin is also negative, this patient is appropriate for discharge, perhaps he has mild viral illness and would recommend supportive care , which can be accomplished at home for him. Again, the patient should be contacted by Dr. Beatty's office tomorrow for sooner followup to help establish outpatient neurologic care in the local community. CARLOS MINA CC: Dr. Beatty * [id number]/[facility] #: [id number] LAZARO
--- NOTE | 2016-05-08 14:48 | ED ---
Brando Casas Soohyun, scribed for Smooth Dyer MD on 03/09/16 at 1555 . Progress - Progress Note Progress Note: This pt is signed out from Dr. Olea with plan involving UA and discharge if stable. Pt is currently refusing both UA and urinary cath at this moment AMA. Risks of leaving ED AMA is discussed with pt, and he expresses understanding. He has plan to f/u with urology and NEUROLOGY as outpatient. Course/Dx - Diagnoses Provider Diagnoses: Multiple sclerosis, Chronic pain The documentation as recorded by the Brando pitts Soohyun accurately reflects the service I personally performed and the decisions made by , Smooth Dyer MD.
== END 2016-03-09 15:55 | disposition home or self-care (01) ==
LOC: ED 07:03
DX: G89.29 Other chronic pain (principal); R07.9 Chest pain, unspecified; Z87.39 Personal history of other diseases of the musculoskeletal system and connective tissue
CPT/HCPCS: 36415; 71010; 80053; 80177; 82550; 82553; 83605; 83874; 83880; 84145; 84484; 85025; 85610; 85730; 86140; 87040; 87502; 93005; 96374; 96376; 99284; J0696; J1170

== ENCOUNTER 2016-03-20 01:22 | Emergency (ER) | payer MEDICARE, MEDICAID ==
[2016-03-20 02:37] LABS: Hematocrit 36 % (42-52); Hemoglobin 11.7 g/dl (14.0-18.0); Mean Corpuscular HGB Conc 32 g/dl (31-36); Mean Corpuscular Hemoglobin 29 pg (27-31); Mean Corpuscular Volume 91 fL (80-94); Red Blood Count 3.98 10^6/ul (4.0-5.4); Red Cell Distribution Width 13 % (10.5-15); White Blood Count 13.2 10^3/ul (3.5-10.8)
[2016-03-20 02:38] LABS: Add Diff/Slide Review? Slide Review Added; Comments Flag Yes
[2016-03-20 03:03] LABS: Albumin 4.3 g/dL (3.2-5.2); BUN/Creatinine Ratio 9.3 (8-20); Calcium 9.7 mg/dL (8.6-10.3); EGFR African American 87.5 (>60); Globulin 2.9 g/dL (2-4); Potassium 3.5 mmol/L (3.5-5.0); Total Protein 7.2 g/dL (6.4-8.9)
[2016-03-20 03:04] LABS: C Reactive Protein 1.16 mg/L (< 5.00); Total Bilirubin 0.8 mg/dL (0.2-1.0)
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
[2016-03-20] MEDS ORDERED: oxyCODONE/Acetamin 5/325 MG* TAB PO ONE (03:09)
[2016-03-20 03:31] VITALS: BP 142/97
== END 2016-03-20 03:30 | disposition home or self-care (01) ==
LOC: ED 01:22
DX: R53.1 Weakness (principal); R42 Dizziness and giddiness; M79.606 Pain in leg, unspecified
CPT/HCPCS: 36415; 80053; 85025; 86140; 99283; A9270-GY

== ENCOUNTER 2016-04-01 23:07 | Inpatient (IN) | payer MEDICARE, MEDICAID ==
[2016-04-01] MEDS ORDERED: NS 0.9% 1000 ML* 1,000 ML IV ONE (23:44)
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
[2016-04-02 00:54] LABS: Hematocrit 35 % (42-52); Hemoglobin 11.4 g/dl (14.0-18.0); Mean Corpuscular HGB Conc 33 g/dl (31-36); Mean Corpuscular Hemoglobin 30 pg (27-31); Mean Corpuscular Volume 91 fL (80-94); Mean Platelet Volume 9 um3 (7.4-10.4); Red Blood Count 3.81 10^6/ul (4.0-5.4); Red Cell Distribution Width 14 % (10.5-15); White Blood Count 14.4 10^3/ul (3.5-10.8)
[2016-04-02 01:06] LABS: Albumin 3.8 g/dL (3.2-5.2); BUN/Creatinine Ratio 7.5 (8-20); Calcium 9.5 mg/dL (8.6-10.3); EGFR African American 115.2 (>60); EGFR Non-African American 89.5 (>60); Globulin 3.2 g/dL (2-4); Magnesium 2.2 mg/dL (1.9-2.7); Potassium 3.3 mmol/L (3.5-5.0); Total Bilirubin 0.4 mg/dL (0.2-1.0)
[2016-04-02] MEDS ORDERED: Ketorolac INJ* 30 MG/ML 1 ML VIAL IV PUSH ONE (01:06)
[2016-04-02] MEDS ORDERED: HYDROmorphone INJ* 1 MG/ML CARPUJECT SYRINGE IV SLOW PU ONE (09:05)
[2016-04-02] MEDS ORDERED: Cyclobenzaprine TAB* 10 MG PO PRN (09:52)
[2016-04-02] MEDS ORDERED: fentaNYL PATCH 75 MCG/HR* 75 MCG TRANSDERM SCH (10:00)
[2016-04-02] MEDS: Morphine INJ* 2 MG/ML 1 ML CARPUJECT IV PRN ×2 (11:48→19:26)
[2016-04-02] MEDS: oxyCODONE TAB* 5 MG TAB PO PRN ×2 (14:26→21:28)
[2016-04-02] MEDS: Gabapentin CAP(*) 300 MG PO SCH ×3 (14:27→21:32)
[2016-04-02] MEDS: fentaNYL Patch Check Q Shift 1 NOTE SCH (19:42)
[2016-04-02] MEDS: Metoprolol Tartrate TAB* 50 mg PO SCH (21:30)
[2016-04-02] MEDS: levETIRAcetam TAB* 500 MG PO SCH (21:33)
[2016-04-02] MEDS: Heparin VIAL(*) 5000 UNITS/ML VIAL (FIVE THOUSAND) SUBCUT SCH (21:33)
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
--- NOTE | 2016-04-03 07:38 | RAD ---
HISTORY: Multiple sclerosis, bilateral leg sensory changes COMPARISONS: February 19, 2016 TECHNIQUE: The following sequences were obtained of the cervical spine: Sagittal T1- and T2-weighted images, sagittal STIR images, axial T2 and gradient echo images. FINDINGS: BRAIN AND SPINAL CORD: There is a spinal cord is normal in caliber position and signal intensity. There are scattered T2 signal lesions of the brainstem consistent with the history of multiple sclerosis. ALIGNMENT: There is straightening of the normal cervical lordosis. The alignment is otherwise normal. 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 Cerclage wires are noted opposite of the C6-C7 and C7-T1 JOINTS: There is mild facet and uncovertebral osteoarthritic change MUSCULATURE: Unremarkable INTERVERTEBRAL DISCS: There is diffuse loss of intervertebral disc height and T2 signal throughout the spine. AXIAL IMAGES: C2-C3: There is no disc herniation, spinal stenosis, or neuroforaminal narrowing. C3-C4: There is bilateral uncovertebral hypertrophy. There is mild narrowing of the neural foramina. There is no significant central canal stenosis. C4-C5: There is bilateral uncovertebral facet hypertrophy. There is mild/moderate narrowing of the neural foramina bilaterally. There is no significant central canal stenosis. C5-C6: There is no disc herniation, spinal stenosis, or neuroforaminal narrowing. C6-C7: There is no disc herniation, spinal stenosis, or neuroforaminal narrowing. C7-T1: There is no disc herniation, spinal stenosis, or neuroforaminal narrowing. SOFT TISSUES: The visualized soft tissues of the neck are unremarkable. OTHER: None. IMPRESSION: 1. NO CERVICAL CORD LESIONS TO SUGGEST A DEMYELINATING PLAQUE. THERE ARE LESIONS OF THE BRAINSTEM CONSISTENT WITH THE HISTORY OF MULTIPLE SCLEROSIS. THESE ARE INCOMPLETELY EVALUATED ON THE CURRENT EXAMINATION. 2. AGAIN NOTED IS NEURAL FORAMINAL NARROWING AT C3-C4 AND C4-C5. THERE IS NO SIGNIFICANT CENTRAL CANAL STENOSIS
--- NOTE | 2016-04-03 07:42 | RAD ---
HISTORY: Bilateral leg sensory changes COMPARISONS: February 27, 2016 TECHNIQUE: The following sequences were obtained of the thoracic spine: Sagittal T1 and T2-weighted images, sagittal STIR images, coronal T2-weighted images, and axial T2-weighted images. . FINDINGS: Localization is based on counting from C2 SPINAL CORD, CONUS, AND CAUDA EQUINA: Again noted is a small, 0.2 x 0.9 cm focus of elevated T2 signal along the right lateral thoracic cord opposite of T3. This is stable from the previous examination. ALIGNMENT: The alignment is normal. VERTEBRAL BODIES: The bones are normal in signal intensity. The vertebral bodies are preserved in height. JOINTS: There is mild osteoarthritis of the costovertebral articulations MUSCULATURE: Unremarkable INTERVERTEBRAL DISCS: There is mild diffuse loss of intervertebral disc height and T2 signal throughout the spine. AXIAL IMAGES: At T8-T9, there is a 0.2 cm right paracentral disc protrusion. There is no significant neural foraminal narrowing or central canal stenosis. At T9-T10, there is a 0.2 cm right paracentral disc protrusion. There is no significant neural foraminal narrowing or central canal stenosis. SOFT TISSUES: The visualized soft tissues of the chest and upper abdomen are unremarkable. OTHER: None. IMPRESSION: 1. STABLE SMALL LESION OF THE RIGHT LATERAL THORACIC CORD OPPOSITE OF T3, CONSISTENT WITH DEMYELINATING PLAQUE GIVEN THE HISTORY OF MULTIPLE SCLEROSIS. 2. MILD DEGENERATIVE DISC DISEASE AND OSTEOARTHRITIS, WITHOUT SIGNIFICANT NEURAL FORAMINAL NARROWING OR CENTRAL CANAL STENOSIS AT.
[2016-04-03] MEDS: Morphine INJ* 2 MG/ML 1 ML CARPUJECT IV PRN (07:45)
[2016-04-03] MEDS: fentaNYL Patch Check Q Shift 1 NOTE SCH (07:49)
[2016-04-03] MEDS ORDERED: Benzocaine/Menthol LOZ* 1 LOZENGE MT PRN (07:57)
[2016-04-03] MEDS: Heparin VIAL(*) 5000 UNITS/ML VIAL (FIVE THOUSAND) SUBCUT SCH ×2 (08:27→23:55)
[2016-04-03] MEDS: Gabapentin CAP(*) 300 MG PO SCH ×4 (08:30→21:16)
[2016-04-03] MEDS: Metoprolol Tartrate TAB* 50 mg PO SCH ×2 (08:32→21:17)
[2016-04-03] MEDS: levETIRAcetam TAB* 500 MG PO SCH ×2 (08:32→21:16)
[2016-04-03 09:05] LABS: Hematocrit 36 % (42-52); Hemoglobin 11.7 g/dl (14.0-18.0); Mean Corpuscular HGB Conc 32 g/dl (31-36); Mean Corpuscular Hemoglobin 30 pg (27-31); Mean Corpuscular Volume 92 fL (80-94); Mean Platelet Volume 9 um3 (7.4-10.4); Red Blood Count 3.94 10^6/ul (4.0-5.4); Red Cell Distribution Width 14 % (10.5-15); White Blood Count 12.9 10^3/ul (3.5-10.8)
--- NOTE | 2016-04-03 09:40 | PN ---
Progress Note - Progress Note SOAP: Neurology progress note Date of service 04/03/16 Subjective: Patient has completed his MRI of the c-spine and T-spine. Still has complaints of the left arm and leg pain. Objective: Vital Signs Temp Pulse Resp BP Pulse Ox 98.1 F 109 18 154/115 95 04/03/16 04:03 04/03/16 04:03 04/03/16 08:45 04/03/16 04:03 04/03/16 04:03 Laboratory Results - last 24 hr 04/03/16 04/03/16 08:36 09:03 WBC 12.9 H RBC 3.94 L Hgb 11.7 L Hct 36 L MCV 92 MCH 30 MCHC 32 RDW 14 Plt Count 277 MPV 9 Group A Strep Rapid Negative Current Medications Acetaminophen (Tylenol Tab*) 650 mg PO Q4H PRN PRN Reason: PAIN Cyclobenzaprine HCl (Flexeril Tab*) 10 mg PO TID PRN PRN Reason: SPASMS Last Admin: 04/02/16 10:19 Dose: 10 mg Fentanyl (Duragesic Patch 75 Mcg/Hr*) 75 mcg TRANSDERM Q72H [facility] Last Admin: 04/02/16 11:47 Dose: 75 mcg Gabapentin (Neurontin Cap(*)) 300 mg PO BEDTIME [facility] Last Admin: 04/02/16 21:30 Dose: 300 mg Gabapentin (Neurontin Cap(*)) 300 mg PO TID [facility] Last Admin: 04/03/16 08:30 Dose: 300 mg Heparin Sodium (Porcine) (Heparin Vial(*)) 5,000 units SUBCUT Q12HR [facility] Last Admin: 04/03/16 08:27 Dose: Not Given Levetiracetam (Keppra Tab*) 500 mg PO BID [facility] Last Admin: 04/03/16 08:32 Dose: 500 mg Metoprolol Tartrate (Lopressor Tab*) 50 mg PO BID [facility] Last Admin: 04/03/16 08:32 Dose: 50 mg Morphine Sulfate (Morphine Inj (Syringe)*) 2 mg IV Q6H PRN PRN Reason: PAIN - MILD Last Admin: 04/03/16 07:45 Dose: 2 mg Oxycodone HCl (Roxycodone Tab*) 15 mg PO Q4H PRN PRN Reason: PAIN Last Admin: 02/17/17 21:28 Dose: 15 mg Pharmacy Profile Note (Fentanyl Patch Check Q Shift) 1 note N/A 0700,1900 JOSE M Last Admin: 04/03/16 07:49 Dose: 1 note Throat Lozenges (Chloraseptic Emily*) 1 emily MT Q6H PRN PRN Reason: SORE THROAT Last Admin: 04/03/16 08:33 Dose: 1 emily On exam: He is awake and oriented. Speech is fluent pupils symmetric and reactive. face symmetric, V1-3 intact to light touch and pinprick. Strength seem 5/5 on the right side. On the left, upper extremity seems 5/5. The left lower extremity has limited exam due to pain. He has decreased sensation to light touch and pinprick in the left upper and lower extremities and to the pain. MRI T-Spine 1. STABLE SMALL LESION OF THE RIGHT LATERAL THORACIC CORD OPPOSITE OF T3, CONSISTENT WITH DEMYELINATING PLAQUE GIVEN THE HISTORY OF MULTIPLE SCLEROSIS. 2. MILD DEGENERATIVE DISC DISEASE AND OSTEOARTHRITIS, WITHOUT SIGNIFICANT NEURAL FORAMINAL NARROWING OR CENTRAL CANAL STENOSIS AT. MRI C-Spine 1. NO CERVICAL CORD LESIONS TO SUGGEST A DEMYELINATING PLAQUE. THERE ARE LESIONS OF THE BRAINSTEM CONSISTENT WITH THE HISTORY OF MULTIPLE SCLEROSIS. THESE ARE INCOMPLETELY EVALUATED ON THE CURRENT EXAMINATION. 2. AGAIN NOTED IS NEURAL FORAMINAL NARROWING AT C3-C4 AND C4-C5. THERE IS NO SIGNIFICANT CENTRAL CANAL STENOSIS Assessment and Plan: 40-year-old man with a history of multiple sclerosis, currently not on any on disease modifying agent, has chronic pain with multiple admissions in the past few months, presents again with symptoms suggestive of MS exacerbation. He is known to me from one of his previous admissions. His MRI spine of the cervical and thoracic region are stable with no new lesions. The findings are consisted with his previous imagings that have been stable with no clear findings suggestive of exacerbation. The patient reports productive coughs with green phlegms in the past couple of months. If he has an underlying URTI, this could be part of contributing factors to his pseudo-exacerbation, although in the past few admission some concerned about drug seeking behavior has been raised. At this point, does not seem that steroids will be indicated. Chronic pain management as outpatient.
--- NOTE | 2016-04-03 10:33 | PN ---
Subjective Date of Service: 04/03/16 Interval History: Pt is feeling about the same. He states the reason he really pushed for admission yesterday was that he is afraid to be home alone. He states his ( whom he is from) is coming to stay with him for the next couple days. He continues to c/o have pain in his legs and weakness in his L arm. He also c/ o sore throat. Objective Active Medications: Acetaminophen (Tylenol Tab*) 650 mg PO Q4H PRN PRN Reason: PAIN Cyclobenzaprine HCl (Flexeril Tab*) 10 mg PO TID PRN PRN Reason: SPASMS Last Admin: 04/02/16 10:19 Dose: 10 mg Fentanyl (Duragesic Patch 75 Mcg/Hr*) 75 mcg TRANSDERM Q72H [facility] Last Admin: 04/02/16 11:47 Dose: 75 mcg Gabapentin (Neurontin Cap(*)) 300 mg PO BEDTIME [facility] Last Admin: 04/02/16 21:30 Dose: 300 mg Gabapentin (Neurontin Cap(*)) 300 mg PO TID [facility] Last Admin: 04/03/16 08:30 Dose: 300 mg Heparin Sodium (Porcine) (Heparin Vial(*)) 5,000 units SUBCUT Q12HR [facility] Last Admin: 04/03/16 08:27 Dose: Not Given Levetiracetam (Keppra Tab*) 500 mg PO BID [facility] Last Admin: 04/03/16 08:32 Dose: 500 mg Metoprolol Tartrate (Lopressor Tab*) 50 mg PO BID [facility] Last Admin: 04/03/16 08:32 Dose: 50 mg Morphine Sulfate (Morphine Inj (Syringe)*) 2 mg IV Q6H PRN PRN Reason: PAIN - MILD Last Admin: 04/03/16 07:45 Dose: 2 mg Oxycodone HCl (Roxycodone Tab*) 15 mg PO Q4H PRN PRN Reason: PAIN Last Admin: 04/02/16 21:28 Dose: 15 mg Pharmacy Profile Note (Fentanyl Patch Check Q Shift) 1 note N/A 0700,1900 [facility] Last Admin: 04/03/16 07:49 Dose: 1 note Throat Lozenges (Chloraseptic Emily*) 1 emily MT Q6H PRN PRN Reason: SORE THROAT Last Admin: 04/03/16 08:33 Dose: 1 emily Vital Signs 04/02/16 04/02/16 04/02/16 11:04 11:31 11:48 Temperature 97.5 F 97.2 F Pulse Rate 86 99 Respiratory 16 18 18 Rate Blood Pressure 133/97 135/91 (mmHg) O2 Sat by Pulse 99 Oximetry 04/02/16 04/02/16 04/02/16 12:48 13:08 14:04 Temperature 98.0 F Pulse Rate 99 Respiratory 18 20 18 Rate Blood Pressure 135/91 (mmHg) O2 Sat by Pulse 99 Oximetry 04/02/16 04/02/16 04/02/16 14:26 14:27 16:25 Temperature Pulse Rate Respiratory 18 18 18 Rate Blood Pressure (mmHg) O2 Sat by Pulse Oximetry 04/02/16 04/02/16 04/02/16 19:26 19:34 20:00 Temperature 98.1 F Pulse Rate 99 Respiratory 16 16 16 Rate Blood Pressure 133/86 (mmHg) O2 Sat by Pulse 96 Oximetry 04/02/16 04/02/16 04/02/16 20:26 21:28 21:30 Temperature Pulse Rate Respiratory 16 16 16 Rate Blood Pressure (mmHg) O2 Sat by Pulse Oximetry 04/02/16 04/02/16 04/02/16 21:32 23:22 23:28 Temperature 98.1 F Pulse Rate 85 Respiratory 16 21 20 Rate Blood Pressure 133/86 (mmHg) O2 Sat by Pulse 96 Oximetry 04/02/16 04/02/16 04/03/16 23:30 23:32 04:03 Temperature 98.1 F Pulse Rate 109 Respiratory 20 20 20 Rate Blood Pressure 154/115 (mmHg) O2 Sat by Pulse 95 Oximetry 04/03/16 04/03/16 04/03/16 07:38 07:45 08:00 Temperature 97.3 F Pulse Rate 92 Respiratory 18 18 18 Rate Blood Pressure 144/87 (mmHg) O2 Sat by Pulse 95 Oximetry 04/03/16 04/03/16 08:30 08:45 Temperature Pulse Rate Respiratory 18 18 Rate Blood Pressure (mmHg) O2 Sat by Pulse Oximetry Oxygen Devices in Use Now: None Appearance: Middle aged male lying in bed, able to pull himself up to sitting, NAD Eyes: No Scleral Icterus Ears/Nose/Mouth/Throat: Mucous Membranes Moist, - - No erythema of the posterior pharynx, no exudate Respiratory: Symmetrical Chest Expansion and Respiratory Effort, Clear to Auscultation Cardiovascular: NL Sounds; No Murmurs; No JVD, RRR, No Edema Abdominal: NL Sounds; No Tenderness; No Distention Extremities: No Clubbing, Cyanosis Skin: No Nodules or Sclerosis Neurological: Alert and Oriented x 3 Result Diagrams: 04/03/16 08:36 04/02/16 00:30 Microbiology and Other Data: Microbiology 04/03/16 08:30 Group A Streptococcus Rapid Screen - Final Throat Specimen received for Rapid Strep A Molecular testing Assess/Plan/Problems-Billing Mr Anderson is a 40 yo M who has a h/o MS, 2 hospitalizations in the last 1 month for possible flair, possible seizure disorder, and chronic pain who presented to the ER with concerns for another MS flare. - Patient Problems (1) Multiple sclerosis Current Visit: Yes Status: Acute Code(s): G35 - MULTIPLE SCLEROSIS SNOMED Code(s): 16265643 Comment: No evidence of acute disease on MRI imaging yesterday. No indication for steroids at this time. He will follow up with Dr. Beatty next week. (2) Leukocytosis Current Visit: Yes Status: Acute Code(s): D72.829 - ELEVATED WHITE BLOOD CELL COUNT, UNSPECIFIED SNOMED Code(s): 666098611 Comment: No clear signs of infection. WBC count trended down slightly without Abx. He is now c/o sore throat. ? viral illness. Hold off on abx for now though he will need to follow up with Dr. Henderson for re-eval. (3) Chronic pain Current Visit: Yes Status: Acute Code(s): G89.29 - OTHER CHRONIC PAIN SNOMED Code(s): 48078447 Comment: I suspect much of the patient's behaviors are drug seeking. Will try to limit the amount of narcotic pain medications he receives in the hospital. He will be discharged home on his usual narcotic regimen. He will need to follow up with Dr. Henderson. (4) Seizure disorder Current Visit: Yes Status: Acute Code(s): G40.909 - EPILEPSY, UNSP, NOT INTRACTABLE, WITHOUT STATUS EPILEPTICUS SNOMED Code(s): 333356251 Comment: Continue justo. (5) DVT prophylaxis Current Visit: Yes Status: Acute Code(s): LUE4694 - SNOMED Code(s): 935785716 Comment: SQ heparin (6) Full code status Current Visit: Yes Status: Acute Code(s): Z78.9 - OTHER SPECIFIED HEALTH STATUS SNOMED Code(s): 920206137
[2016-04-03] MEDS: oxyCODONE TAB* 5 MG TAB PO PRN ×3 (10:37→21:17)
[2016-04-03] MEDS ORDERED: Pantoprazole IV* 40 MG IV SCH (11:00)
[2016-04-03] MEDS ORDERED: fentaNYL PATCH 50 MCG/HR TRANSDERM SCH (12:00)
[2016-04-04] MEDS: oxyCODONE TAB* 5 MG TAB PO PRN ×5 (01:47→22:03)
[2016-04-04] MEDS: fentaNYL Patch Check Q Shift 1 NOTE SCH ×3 (06:45→18:48)
[2016-04-04] MEDS: Heparin VIAL(*) 5000 UNITS/ML VIAL (FIVE THOUSAND) SUBCUT SCH ×3 (09:00→21:20)
[2016-04-04] MEDS: Gabapentin CAP(*) 300 MG PO SCH ×4 (09:07→21:17)
[2016-04-04] MEDS: Metoprolol Tartrate TAB* 50 mg PO SCH ×2 (09:08→21:18)
[2016-04-04] MEDS: levETIRAcetam TAB* 500 MG PO SCH ×2 (09:08→21:18)
[2016-04-04] MEDS: Acetaminophen TAB* 325 MG PO PRN ×2 (11:58→23:45)
--- NOTE | 2016-04-04 16:09 | PN ---
Progress Note - Progress Note Note: I spoke with the patient about his group home status. Yesterday he refused to leave as he stated he had no one to help him at home but he stated his was going to be here today. She has not shown up yet. I asked him when he thought she would be here and he stated "I hope soon." We discussed if she shows up tonight he needs to leave tonight. If she does not show up he needs to leave tomorrow AM. He states he is sick because he has a cold and migraine. I explained that those are conditions that are typically treated as an outpatient. He is agreeable to leaving at the latest tomorrow.
[2016-04-05] MEDS: oxyCODONE TAB* 5 MG TAB PO PRN ×5 (02:02→19:41)
[2016-04-05] MEDS: fentaNYL Patch Check Q Shift 1 NOTE SCH ×2 (07:23→19:22)
[2016-04-05] MEDS: Gabapentin CAP(*) 300 MG PO SCH ×4 (09:44→19:44)
[2016-04-05] MEDS: levETIRAcetam TAB* 500 MG PO SCH ×2 (09:45→19:45)
[2016-04-05] MEDS: Metoprolol Tartrate TAB* 50 mg PO SCH ×2 (09:45→19:46)
[2016-04-05] MEDS: Heparin VIAL(*) 5000 UNITS/ML VIAL (FIVE THOUSAND) SUBCUT SCH ×2 (09:45→19:47)
--- NOTE | 2016-04-05 10:00 | PN ---
Progress Note - Progress Note Note: Pt is now stating he is having suicidal thoughts due to his MS and his leaving him. Will place the patient on 1:1 and get psych consult.
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
[2016-04-05] MEDS ORDERED: fentaNYL PATCH 50 MCG/HR TRANSDERM SCH (16:00)
--- NOTE | 2016-04-05 17:25 | PN ---
Progress Note - Progress Note Note: I discussed with the patient the plan for discharge home tomorrow AM. He is in agreement and accepts VNS and home PT referrals. He is clinically stable at this point and no longer needing the 1:1 monitoring. He will follow up with Dr. Henderson in the next 4-[address] Beatty on 04/13/16.
[2016-04-05] MEDS: Acetaminophen TAB* 325 MG PO PRN (19:46)
[2016-04-06] MEDS: oxyCODONE TAB* 5 MG TAB PO PRN ×2 (00:31→08:31)
[2016-04-06] MEDS: fentaNYL Patch Check Q Shift 1 NOTE SCH (07:10)
--- NOTE | 2016-04-06 08:07 | DS ---
DISCHARGE SUMMARY: DATE OF ADMISSION: 04/02/16 DATE OF DISCHARGE: 04/06/16 PRIMARY CARE PROVIDER: Dr. Henedrson. PRINCIPAL DIAGNOSES: 1. Multiple sclerosis. 2. Chronic pain. SECONDARY DIAGNOSIS: Possible seizure disorder. DISCHARGE MEDICATIONS: 1. Oxycodone 15 mg p.o. q.4 hours p.r.n. pain. 2. Keppra 500 mg p.o. b.i.d. 3. Fentanyl patch 50 mcg topically q.72 hours. 4. Metoprolol tartrate 50 mg p.o. b.i.d. 5. Gabapentin 300 mg p.o. t.i.d. and at bedtime. 6. Flexeril 10 mg p.o. b.i.d. p.r.n. spasm. HOSPITAL COURSE: Mr. Anderson is a 40-year-old male who approximately 3 to 4 months ago moved to the [facility] as he was from this and has a history of multiple sclerosis, presented to the emergency room with complaints of possible MS flare. The patient was admitted and seen by neurology. At the time of the neurology evaluation, there was a questionable sensory deficit and therefore imaging of the cervical and thoracic spine was performed. This did not reveal any evidence of active multiple sclerosis. The patient was felt to be stable for discharge home on 04/03/16. However, the patient refused to go stating that he was unsafe. The patient was transitioned to snf care on the afternoon of 04/03/16. On 04/04/16 the patient stated that he was going to leave; however, he needed his to come and pick him up and take him home. She never showed up and therefore the plan was to have the patient discharged on 04/05/16. Again the patient kept putting this off because he felt that he was unsafe to go and he felt that he was still sick because he had a migraine and a cold. The patient did not leave on 04/04/16 as his never showed up. On 04/05/16, the patient still was refusing to go and in fact stated that he felt suicidal due to his history of multiple sclerosis and the fact that he and his are . The patient was placed on a one-to-one safety monitor. Additionally a psychiatry consultation was requested. Dr. Cazares saw the patient and felt that he was not a suicide risk. The one-to-one safety monitor was removed. Case management and social work spoke with the patient at length about the need to go home as there were no acute medical needs for the patient to be in the hospital. The plan is for the patient to be discharged home on 04/06/16. The patient will be set up with visiting nurses and home PT. Additionally a prescription for a walker has been signed by myself and sent to [facility] [place]. A Medicaid cab has been set up for transport home on 04/06/16. The patient has an appointment set up with Dr. Beatty on 04/13/16 to establish for neurologic care. Additionally, the patient will follow up with Dr. Henderson in the next 4 to 7 days. FOLLOWUP CONCERNS: The patient is being discharged home on 04/06/16. ACTIVITY: Activity level is as tolerated. DIET: Regular. CONDITION ON DISCHARGE: Stable. TIME SPENT: Thirty five minutes was spent discharging this patient. CC: Dr. Henderson; Dr. Beatty* [id number]/[facility] #: [id number] MTDD
[2016-04-06] MEDS: Gabapentin CAP(*) 300 MG PO SCH (08:29)
[2016-04-06] MEDS: levETIRAcetam TAB* 500 MG PO SCH (08:30)
[2016-04-06] MEDS: Heparin VIAL(*) 5000 UNITS/ML VIAL (FIVE THOUSAND) SUBCUT SCH (08:31)
[2016-04-06] MEDS: Metoprolol Tartrate TAB* 50 mg PO SCH (08:31)
[2016-04-06 08:33] VITALS: BP 131/87
== END 2016-04-06 10:25 | disposition home or self-care (01) | DRG 59 ==
LOC: ED 23:07 → MED 04-02 09:51 → OBSVTOIN 04-03 15:20
PROVIDERS: ADMIT Hospitalist; ATTEND Hospitalist
DX: G35 Multiple sclerosis (principal); R45.851 Suicidal ideations; G89.29 Other chronic pain; G40.909 Epilepsy, unspecified, not intractable, without status epilepticus; Z79.891 Long term (current) use of opiate analgesic; Z79.899 Other long term (current) drug therapy; Z88.8 Allergy status to other drugs, medicaments and biological substances; Z83.3 Family history of diabetes mellitus; Z82.49 Family history of ischemic heart disease and other diseases of the circulatory system; Z76.5 Malingerer [conscious simulation]
CPT/HCPCS: 36415; 72141; 72146; 80053; 82550; 83605; 83735; 85025; 85027; 87651; 93005; A9270-GY; G0378; J1170; J1644; J1885; J2270

== ENCOUNTER 2016-06-26 11:58 | Inpatient (IN) | payer MEDICARE ==
[2016-06-26] MEDS ORDERED: oxyCODONE TAB* 5 MG TAB PO ONE ×2 (13:08→15:38)
[2016-06-26 14:19] LABS: Urine Bilirubin Negative (Negative); Urine Glucose Negative (Negative); Urine Nitrite Negative (Negative)
[2016-06-26 14:49] LABS: Benzodiazepine Urine Screen None Detected (None Detect)
[2016-06-26 14:53] LABS: Hematocrit 38 % (42-52); Hemoglobin 12.8 g/dl (14.0-18.0); Mean Corpuscular HGB Conc 34 g/dl (31-36); Mean Corpuscular Hemoglobin 29 pg (27-31); Mean Corpuscular Volume 87 fL (80-94); Mean Platelet Volume 9 um3 (7.4-10.4); Red Blood Count 4.39 10^6/ul (4.0-5.4); Red Cell Distribution Width 13 % (10.5-15); White Blood Count 13.7 10^3/ul (3.5-10.8)
[2016-06-26 15:06] LABS: ALT 8 U/L (7-52); AST 8 U/L (13-39); Albumin 3.7 g/dL (3.2-5.2); Alkaline Phosphatase 68 U/L (34-104); Anion Gap 6 mmol/L (2-11); Blood Urea Nitrogen 15 mg/dL (6-24); CO2 Carbon Dioxide 26 mmol/L (22-32); Calcium 8.7 mg/dL (8.6-10.3); Chloride 106 mmol/L (101-111); EGFR African American 105.9 (>60); EGFR Non-African American 82.3 (>60); Globulin 2.6 g/dL (2-4); Glucose 116 mg/dL (70-100); Sodium 138 mmol/L (133-145); Total Protein 6.3 g/dL (6.4-8.9)
[2016-06-26 15:23] LABS: Acetaminophen < 15 mcg/mL; Alcohol < 10 mg/dL (<10); Salicylate < 2.50 mg/dL (<30)
[2016-06-26 15:25] LABS: TSH (Thyroid Stimulating Horm) 1.83 mcIU/mL (0.34-5.60)
[2016-06-26] MEDS ORDERED: oxyCODONE TAB* 5 MG TAB ONE (15:41)
[2016-06-26] MEDS ORDERED: diPHENhydraMINE PO* 50 MG ONE (19:30)
[2016-06-26] MEDS ORDERED: chlorproMAZINE TAB* 50 MG ONE (19:31)
[2016-06-26] MEDS ORDERED: chlorproMAZINE INJ* 25 MG/ML 2 ML (50 MG) ONE (19:34)
[2016-06-26] MEDS ORDERED: diPHENhydraMINE IV* 50 MG/ML 1 ml VIAL (BENADRYL) ONE (19:35)
[2016-06-26] MEDS ORDERED: Al Hydrox/Mg Hydrox/Simet LIQ* 30 ML UDC PO PRN (19:39)
[2016-06-26] MEDS ORDERED: Haloperidol INJ IV/IM* 5 MG/ML AMP ONE (19:40)
--- NOTE | 2016-06-26 20:59 | PN ---
Subjective - Subjective Subjective: Called in as the backup to on-call doctor Yashira Hill to assess Mr. Anderson for agitation. He has documented history of multiple sclerosis, was admitted to the hospitalist service recently. He returned today with complaints of unbearable pain and during his assessment made statements that he would kill himself because his pain was not being adequately addressed. Misuse if his pain medications was considered as per TRANSMISSION REPAIRER he received scripts from a 15-day supply of Fentanyl 25 mcg/hr/patch (1 every every 72 hours) and oxycodone 10 mg tablets (1 tab every 6 hours as needed for pain) from Dr. Hussein Henderson on 06/21/16. He asserts that he has the rest of his medication home. He was medicated earlier for agitation and threatening behavior Haloperidol 5 mg IM, Benadryl 50 mg and Thorazine 50 mg. When interviewed, his VS were stable , he was alert, oriented, calm and and polite, he denied that he was actively suicidal or med-seeking, asserted the rest of his meds are at home and that his primary care providers were in the process of referring him to the Pain [facility] with Dr. Ding. He contracted for safety and apologized for his earlier threatening behavior. IMP: Mood disorder sec to MS. Plan: 1) restart Fentanyl patch 25 mcg q 72 hours and Oxycodone 10 mg PO Q 6Hr. prn for pain. 2)Patient to be evaluated by Dr. Hill in AM. 3) Patient instructed to followup with referral to pain clinic with Dr. Ding. Plan - Treatment Plan Medications: Current Medications Acetaminophen (Tylenol Tab*) 650 mg PO Q4H PRN PRN Reason: PAIN or TEMP > 101 F Al Hydrox/Mg Hydrox/Simethicone (Maalox Plus*) 30 ml PO Q4H PRN PRN Reason: INDIGESTION Multivitamins (Theragran Tab*) 1 tab PO DAILY JOSE M
[2016-06-26] MEDS ORDERED: fentaNYL PATCH 12 MCG/HR TRANSDERM SCH (22:00)
[2016-06-26] MEDS: oxyCODONE TAB* 5 MG TAB PO PRN (22:15)
[2016-06-26] MEDS: fentaNYL Patch Check Q Shift 1 NOTE SCH (23:05)
[2016-06-27] MEDS: oxyCODONE TAB* 5 MG TAB PO PRN ×4 (04:25→23:45)
[2016-06-27] MEDS: fentaNYL Patch Check Q Shift 1 NOTE SCH ×3 (07:19→23:45)
[2016-06-27] MEDS: Vitamin THERAPEUTIC TAB PO SCH (11:04)
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
[2016-06-27] MEDS ORDERED: DULoxetine DR CAP* 20 MG CAP.DR PO ONE (15:12)
[2016-06-27] MEDS ORDERED: Ibuprofen TAB* 800 MG PO PRN (16:42)
[2016-06-27] MEDS: carBAMazepine ER TAB(*) 100 MG PO SCH (16:58)
[2016-06-27] MEDS: Cyclobenzaprine TAB* 10 MG PO PRN (18:19)
[2016-06-27] MEDS: Metoprolol Tartrate TAB* 50 mg PO SCH (23:45)
[2016-06-27] MEDS: Gabapentin CAP(*) 300 MG PO SCH (23:45)
[2016-06-28] MEDS: Acetaminophen TAB* 325 MG PO PRN ×2 (05:55→11:56)
[2016-06-28] MEDS: oxyCODONE TAB* 5 MG TAB PO PRN ×3 (05:55→18:15)
[2016-06-28] MEDS: fentaNYL Patch Check Q Shift 1 NOTE SCH ×3 (07:21→23:21)
[2016-06-28] MEDS: Metoprolol Tartrate TAB* 50 mg PO SCH ×2 (10:51→19:57)
[2016-06-28] MEDS: Vitamin THERAPEUTIC TAB PO SCH (10:51)
[2016-06-28] MEDS: Gabapentin CAP(*) 300 MG PO SCH ×2 (10:51→19:57)
[2016-06-28] MEDS: carBAMazepine ER TAB(*) 100 MG PO SCH (10:51)
[2016-06-28] MEDS: Cyclobenzaprine TAB* 10 MG PO PRN (11:56)
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
[2016-06-28 16:37] LABS: EGFR African American 100.1 (>60); EGFR Non-African American 77.8 (>60)
[2016-06-28] MEDS ORDERED: Gadoteridol* (CONTRAST) 279.3 MG/ML 10 ML IV ONE (18:01)
--- NOTE | 2016-06-28 19:13 | RAD ---
Indication: Multiple sclerosis. Image sequences: Sagittal and axial T1 and T2 FLAIR images of the brain were obtained. Axial diffusion, T2, ADC map were obtained. 18 mL of ProHance was injected and postcontrast axial, coronal and sagittal T1-weighted images were repeated. Ventricular structures are midline. No midline shift is noted. The extraction spaces are unremarkable. Again noted are multiple subcortical and periventricular areas of signal abnormality some of which are pericallosal in nature. The most prominent of these are in the periatrial soft tissue and along the temporal horn. No abnormal enhancement of any of these lesions is identified. Findings are suspicious for demyelinating process. Postcontrast images demonstrates no gross enhancement. The brainstem demonstrates tiny foci of likely demyelinating process in the diya. This is unchanged from previous exam. The posterior fossa is grossly unremarkable. The paranasal sinuses are grossly unremarkable. IMPRESSION: MULTIPLE PERIVENTRICULAR AND PERICALLOSAL AREAS OF SIGNAL ABNORMALITY SUSPICIOUS FOR DEMYELINATING PROCESS. OVERALL THIS DOES NOT APPEAR TO BE SIGNIFICANTLY CHANGED SINCE FEBRUARY 19, 2016 WITH NO ABNORMALLY ENHANCING LESIONS. FINDINGS CONSISTENT WITH A DEMYELINATING PROCESS.
[2016-06-28] MEDS ORDERED: fentaNYL PATCH 12 MCG/HR TRANSDERM SCH (20:00)
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
[2016-06-29] MEDS: oxyCODONE TAB* 5 MG TAB PO PRN ×3 (00:05→11:22)
[2016-06-29 07:38] VITALS: BP 139/101
[2016-06-29] MEDS: Acetaminophen TAB* 325 MG PO PRN ×2 (08:20→12:56)
[2016-06-29] MEDS: Vitamin THERAPEUTIC TAB PO SCH (08:20)
[2016-06-29] MEDS: Gabapentin CAP(*) 300 MG PO SCH (08:20)
[2016-06-29] MEDS: carBAMazepine ER TAB(*) 100 MG PO SCH (08:21)
[2016-06-29] MEDS: Metoprolol Tartrate TAB* 50 mg PO SCH (08:21)
[2016-06-29] MEDS: fentaNYL Patch Check Q Shift 1 NOTE SCH (09:13)
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
[2016-06-29] MEDS: Cyclobenzaprine TAB* 10 MG PO PRN (11:22)
--- NOTE | 2016-06-29 11:47 | PN ---
[facility]: Group Therapy Note - Service Type Service Type: 52029 Group Psychotherapy - Cognitive Behavioral Group Therapy ( CBT):Patient was attentive and participatory in CBT programming this morning, and remained in good behavioral control. Patient expressed positive insights regarding relevant treatment interventions and goals.
== END 2016-06-29 13:45 | disposition home or self-care (01) | DRG 881 ==
LOC: ED 11:58 → BSU 16:00
PROVIDERS: ADMIT Internal Medicine; ATTEND Psychiatry & Neurology Psychiatry
DX: F32.9 Major depressive disorder, single episode, unspecified (principal); G35 Multiple sclerosis; R45.851 Suicidal ideations; G40.909 Epilepsy, unspecified, not intractable, without status epilepticus; I10 Essential (primary) hypertension; Z79.891 Long term (current) use of opiate analgesic; Z79.899 Other long term (current) drug therapy; Z88.8 Allergy status to other drugs, medicaments and biological substances; M54.12 Radiculopathy, cervical region
CPT/HCPCS: 36415; 70553; 80053; 80156; 80307; 80320; 80329; 81003; 82565; 84443; 84520; 85025; 90853; 99222; 99238; A9270-GY; A9579; G0480; J1200; J1630

== ENCOUNTER 2016-06-29 16:07 | Inpatient (IN) | payer MEDICARE ==
[2016-06-29] MEDS ORDERED: oxyCODONE TAB* 5 MG TAB PO ONE (20:43)
[2016-06-29] MEDS ORDERED: Gabapentin CAP(*) 300 MG PO ONE (21:18)
[2016-06-29] MEDS ORDERED: carBAMazepine ER TAB(*) 200 MG PO ONE (21:19)
[2016-06-29] MEDS ORDERED: fentaNYL PATCH 25 MCG/HR TRANSDERM ONE (21:20)
[2016-06-29] MEDS ORDERED: Metoprolol Tartrate TAB* 50 mg PO ONE (21:22)
--- NOTE | 2016-06-29 21:33 | ED ---
Asim Casas [place], scribed for Jonatan Boone MD on 06/29/16 at 1920 . Neurological HPI - HPI Summary HPI Summary: Patient is a 40 y/o male who presents to the ED with MS exacerbation for the past 4 days. Pt was admitted into the hospital approximately 1.5 weeks ago same compliant. He was then admitted into mental health and discharged today after 3 days. Pt was in mental health due to SI, related to MS flare ups. He reports pain and tremors on the left side of his body, radiating into the groin area. He also reports weakness in LLE and shakes in LUE. Pt states that he fell this morning, as a result of weakness. He denies any changes to BM or any urinary sx. He also states that he had a neurologist in [place], but is no longer able to see him because of a change in his insurance company, however he has an appointment with another neurologist in one week. Pt expresses concern about sx worsening as he lives alone and does not have cellular service where he lives. Pt walks with a cane. - History of Current Complaint Chief Complaint: EDWeakness Stated Complaint: FALL Time Seen by Provider: 06/29/16 19:06 Hx Obtained From: Patient Onset/Duration: Gradual Onset, Started days ago, Still Present Timing: Constant Onset Severity: Moderate Current Severity: Moderate Neurological Deficit Location: LUE, LLE Pain Intensity: 10 Pain Scale Used: 0-10 Numeric Aggravating: Nothing Alleviating: Nothing Associated Signs and Symptoms: Positive: Pain - Additional Pertinent History Primary Care Physician: [id number] - Allergy/Home Medications Allergies/Adverse Reactions: Allergies Allergy/AdvReac Type Severity Reaction Status Date / Time Meloxicam Allergy Severe See Comment Verified 06/29/16 19:54 Ketorolac Tromethamine Allergy Eyes Verified 06/29/16 19:54 [From Toradol] Itchy/Swollen/Red/Watery PMH/Surg Hx/FS Hx/Imm Hx Endocrine/Hematology History: Denies: Hx Diabetes Cardiovascular History: Reports: Hx Hypertension - Per pt. Denies: Hx Pacemaker/ICD Respiratory History: Denies: Hx Asthma History: Denies: Hx Dialysis, Hx Renal Disease Musculoskeletal History: Reports: Hx Arthritis - neck, Other Musculoskeletal History Sensory History: Reports: Hx Contacts or Glasses Denies: Hx Hearing Aid Opthamlomology History: Reports: Hx Contacts or Glasses Neurological History: Reports: Hx Migraine - per patient, Hx Seizures, Other Neuro Impairments/Disorders - MS Denies: Hx Dementia Psychiatric History: Reports: Hx Depression, Hx Inpatient Treatment, Hx Substance Abuse Denies: Hx Eating Disorder, Hx Panic Disorder, Hx Suicide Attempt, Hx of Violent Episodes Against Others - Surgical History Surgery Procedure, Year, and Place: C-Spine FUSION, APPENDECTOMY, BULLET IN LEG REMOVED (MRI APPROVAL BY DR. MILLER 02/19/2016 - PT UNDERSTANDS HEATING POTENTIAL) - Immunization History Date of Tetanus Vaccine: 2015 Date of Influenza Vaccine: 2015 Infectious Disease History: Denies: Traveled Outside the [place] in Last 30 Days - Family History Known Family History: Positive: Cardiac Disease, Diabetes - Social History Alcohol Use: None Hx Substance Use: Yes Substance Use Type: Reports: Marijuana Hx Tobacco Use: No Smoking Status (MU): Never Smoked Tobacco Review of Systems Constitutional: Other - Fall. Negative: Fever Genitourinary: Negative Neurological: Other - Pain and tremor on left side of body. Shakes LUE. Positive: Weakness - LLE. All Other Systems Reviewed And Are Negative: Yes Physical Exam Vital Signs On Initial Exam: Initial Vitals Temp Pulse Resp Pulse Ox 98.4 F 74 18 98 06/29/16 16:11 06/29/16 16:11 06/29/16 16:11 06/29/16 16:11 Vital Signs Reviewed: Yes Appearance: Positive: Well-Appearing, No Pain Distress Skin: Positive: Warm, Skin Color Reflects Adequate Perfusion, Dry Head/Face: Positive: Normal Head/Face Inspection Eyes: Positive: EOMI, EDMOND ENT: Positive: Normal ENT inspection Neck: Positive: Supple, Nontender Respiratory/Lung Sounds: Positive: Clear to Auscultation, Breath Sounds Present Cardiovascular: Positive: RRR Abdomen Description: Positive: Nontender, Soft Bowel Sounds: Positive: Present Neurological: Positive: Sensory/Motor Intact, Alert, Oriented to Person Place, Time, Other - Left leg: effort against gravity. Weak with plantar and dorsal flexion. No other neurological deficit. Psychiatric: Positive: Affect/Mood Appropriate Diagnostics - Vital Signs Vital Signs Temp Pulse Resp BP Pulse Ox 06/29/16 18:31 98.7 F 76 16 126/89 97 06/29/16 16:58 98.3 F 71 134/93 98 06/29/16 16:11 98.4 F 74 18 98 - Laboratory Lab Statement: Any lab studies that have been ordered have been reviewed, and results considered in the medical decision making process. Re-Evaluation - Re-Evaluation First Eval Re-Evaluation Time: 20:19 Comment: Informed pt of consultations. Second Eval Re-Evaluation Time: 20:37 Comment: Updated pt of plan. Third Eval Re-Evaluation Time: 21:08 Course/Dx - Course Course Of Treatment: NO CRITICAL CARE TIME Assessment/Plan: REVIEWED PATIENT'S RECENT NEUROLOGY CONSULTATION. DR SHUKLA FELT THE PATIENT'S WEAKNESS WAS NOT NEW AND WOULD NOT TREAT WITH IV SOLUMEDROL FOR MS EXACERBATION UNLESS THE MRI SHOWED EVIDENCE OF ACUTE MS EXACERBATION. THE MRI DID NOT SHOW EVIDENCE OF ACUTE MS EXACERBATION THEREFORE, PATIENT IS NOT BEING TREATED FOR MS EXACERBATION. DISCUSSED ALL OF THIS WITH THE PATIENT, NEUROLOGY DR CLARK AND HOSPITALIST. PATIENT STATES HE DOES NOT FEEL SAFE AT HOME, HE HAS NO PHONE SEVICE AND IS AFRAID OF FALLING AT HOME. HE STATES HE FELL TODAY BUT, DENIES ANY SIGNIFICANT INJURY THAT REQUIRES IMAGING. PATIENT WILL BE ADMITTED USP CARE STABLE WITH SOCIAL WORK CONSULT IN THE AM. - Diagnoses Provider Diagnoses: Left leg weakness, Pain of left side of body - Physician Notifications Discussed Care of Patient With: Dr. Allison (hospitalist) @ 1957 and @ 20[address] Will [address] Clark (neurologist) @ 2010. Discharge - Discharge Plan Condition: Stable Disposition: ADMITTED TO [facility] Referrals: [facility] PHYSICIAN REFERRAL [Outside] The documentation as recorded by the Asim pitts Salem accurately reflects the service I personally performed and the decisions made by me, Jonatan Boone MD.
--- NOTE | 2016-06-30 06:10 | HP ---
H&P (Free Text) History and Physical: Date/Time of Evaluation: 06/30/2016 0615 CC: "MS flare" HPI: Mr Anderson is a 40YO male HX MS who was admitted to [facility] 06/26-2016 with complaint of MS flare, was evaluated by Shanna Beatty MD neurology who did not feel he was having an MS flare based on his exam being consistent with previous documentation and an MRI brain W/WO not showing new lesions. He returns today continuing to complain of an MS flare. Dr Mely MD ED consulted via phone with Douglas Hernandez MD neurology who agreed with Dr Beatty and reportedly advised discharge to f/u with his MS provider. When Mr Anderson was advised of the plan to discharge, he stated he did not feel safe at home as he could not care for himself. He was explained this would constitute a [facility] admission for which he may be financially responsible and agreed to signing the pre-authorization denial. He was advised he would receive only his routine home medications and a manager social consult. Mr Anderson reports N/T, dysesthesia, & gradually progressing weakness of the LLE. He was admitted 06/20-06/22/2016 receiving 3 days of IV steroids without significant improvement further speaking against MS flare. PMedHx, PSurgHx, SocHx & FamHx: reviewed & unchanged compared to H&P dated 06/19, please refer to this as well as its technician support engineer discharge summary for more information Ambulatory Orders Metoprolol Tartrate TAB* [Lopressor TAB*] 50 mg PO BID #60 tab 02/24/16 fentaNYL PATCH 25 MCG/HR* [Duragesic PATCH 25 Mcg/Hr*] 50 mcg TRANSDERM Q72H #5 patch MDD 1 patch 04/03/16 Oxycodone TAB(NF) [Oxycodone HCl 10 MG] 10 mg PO Q6H PRN 06/21/16 Cyclobenzaprine TAB* [Flexeril 10 MG TAB*] 10 mg PO Q12H PRN #60 tab 06/29/16 Gabapentin CAP(*) [Neurontin 300 CAP(*)] 300 mg PO BID #60 cap 06/29/16 Vitamin THERAPEUTIC TAB* [Theragran TAB*] 1 tab PO DAILY tab 06/29/16 carBAMazepine ER TAB(*) [Tegretol Xr TAB(*)] 200 mg PO BID #120 tab.xr 06/29/16 Allergies Meloxicam Allergy (Severe, Verified 06/29/16 19:54) See Comment SNEEZES Ketorolac Tromethamine [From Toradol] Allergy (Verified 06/29/16 19:54) Eyes Itchy/Swollen/Red/Watery ROS: as above, otherwise reviewed and all were negative Constitutional: NAD, normally developed, overweight black male vitals: Vital Signs Temp 36.8 C 06/29/16 19:50 Pulse 64 06/30/16 05:00 Resp 20 06/29/16 23:41 BP 108/63 06/30/16 05:00 Pulse Ox 98 06/30/16 05:00 Intake & Output 06/29/16 06/29/16 06/30/16 11:59 23:59 11:59 Weight 84.368 kg HEENM: atraumatic; sclera/conjunctiva: non-icteric/clear; hearing: clinically intact; oropharynx: clear, mucosa moist Neck: soft tissue: non-tender; thyroid: normal Pulmonary: clear to auscultation bilaterally, good aeration, no accessory muscle use CV: RR/RR, normal S1S2, no carotid bruit, no jugular venous distention, 2+ B DP/ PT, no edema Abdominal: soft, non-distended, non-tender, no rebound/guarding/rigidity, normoactive bowel sounds, no hepatosplenomegaly or masses, no costovertebral angle tenderness Musculoskeletal: general: no atrophy or contractures Integumental: normal appearance and texture of exposed skin Psychiatric orientation: AA&O to PPS affect: calm mood: cooperative eye contact: good content: unreliable, omits information such as seeing Dr Beatty and having the MRI while admitted to the [facility] stating, "I was up there on the psych unit and they did nothing for me. responses: timely insight: poor Testing: none Impression: 40M reporting an inability to safely care for self at home 2nd stable MS and chronic pain DIAGNOSIS & PLAN Primary no safe discharge : [facility] admission : manager social consult Secondary MS, in remission : no current issues undocumented seizure disorder : continue gabapentin & carbamazepine chronic cervicalgia : continue fentanyl patch, oxycodone, cyclobenzaprine, & gabapentin Admission Rational: NURSING HOME DVTp: SCDs Code Status: full
[2016-06-30] MEDS ORDERED: fentaNYL Patch Check Q Shift 1 NOTE SCH ×2 (07:00→19:00)
[2016-06-30] MEDS ORDERED: fentaNYL PATCH 25 MCG/HR TRANSDERM SCH (07:00)
[2016-06-30] MEDS: oxyCODONE TAB* 5 MG TAB PO PRN ×3 (07:01→20:39)
[2016-06-30] MEDS: Cyclobenzaprine TAB* 10 MG PO PRN (07:01)
[2016-06-30] MEDS: Gabapentin CAP(*) 300 MG PO SCH ×2 (12:04→20:39)
[2016-06-30] MEDS: carBAMazepine ER TAB(*) 100 MG PO SCH ×2 (12:04→20:37)
[2016-06-30] MEDS: Metoprolol Tartrate TAB* 50 mg PO SCH ×2 (12:05→20:40)
[2016-07-01] MEDS: oxyCODONE TAB* 5 MG TAB PO PRN ×3 (02:33→14:45)
[2016-07-01] MEDS: Cyclobenzaprine TAB* 10 MG PO PRN ×2 (02:34→14:44)
[2016-07-01 08:39] VITALS: BP 132/94
[2016-07-01] MEDS: Gabapentin CAP(*) 300 MG PO SCH (08:39)
[2016-07-01] MEDS: Metoprolol Tartrate TAB* 50 mg PO SCH (08:39)
[2016-07-01] MEDS: carBAMazepine ER TAB(*) 100 MG PO SCH (08:39)
--- NOTE | 2016-07-05 07:02 | PN ---
Hospitalist Progress Note . HOSPITALIST DISCHARGE NOTE: See dc instructions and summary by me. Patient stable for dc dc instructions reviewed with the patient at the bedside. DC patient home today.
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
== END 2016-07-01 15:10 | disposition home health service (06) | DRG 60 ==
LOC: ED 16:07 → MED 06-30 06:38 → INTOOBSV 06-30 06:38 → OBSVTOIN 06-30 06:38
PROVIDERS: ADMIT Hospitalist; ATTEND Internal Medicine
DX: G35 Multiple sclerosis (principal); I10 Essential (primary) hypertension; Z88.8 Allergy status to other drugs, medicaments and biological substances; E66.3 Overweight; G89.29 Other chronic pain; G40.909 Epilepsy, unspecified, not intractable, without status epilepticus; M54.2 Cervicalgia; G43.909 Migraine, unspecified, not intractable, without status migrainosus; F32.9 Major depressive disorder, single episode, unspecified; Z98.1 Arthrodesis status; Z68.29 Body mass index [BMI] 29.0-29.9, adult
CPT/HCPCS: A9270-GY

== ENCOUNTER 2018-07-28 18:42 | Emergency (ER) | payer MEDICARE ==
--- NOTE | 2018-07-28 21:54 | ED ---
Lower Extremity - HPI Summary HPI Summary: This patient is a 42 year old male brought in by EMS presenting to [facility] with a chief complaint of MS flare up since 12 hours ago. The patient states he has had increased weakness since 3 days ago, pain in his legs from his ankles to his waist bilaterally, and has fallen multiple times. The patient ambulates with a cane and a walker. The patient states he had fusion surgery to repair a broken neck at 10 years old and was diagnosed with MS at [facility] 6 years ago when they were following up on pinched nerves s/p the surgery. The patient currently does not take anything for MS but his Neurologist prescribed him Aubagio however he could not afford the medication. He tried to take Copaxone and Tecfidera however he experienced side effects. Metoprolol Tartrate TAB* [Lopressor TAB*] 50 mg PO BID #60 tab 02/24/16 [Rx Confirmed 06/29/16] fentaNYL PATCH 25 MCG/HR* [Duragesic PATCH 25 Mcg/Hr*] 50 mcg TRANSDERM Q72H #5 patch MDD 1 patch 04/03/16 [Rx Confirmed 06/29/16] Oxycodone TAB(NF) [Oxycodone HCl 10 MG] 10 mg PO Q6H PRN 06/21/16 [History Confirmed 06/29/16] Cyclobenzaprine TAB* [Flexeril 10 MG TAB*] 10 mg PO Q12H PRN #60 tab 06/29/16 [ Rx Confirmed 06/29/16] Gabapentin CAP(*) [Neurontin 300 CAP(*)] 300 mg PO BID #60 cap 06/29/16 [Rx Confirmed 06/29/16] Vitamin THERAPEUTIC TAB* [Theragran TAB*] 1 tab PO DAILY tab 06/29/16 [Rx Confirmed 06/29/16] carBAMazepine ER TAB(*) [Tegretol Xr TAB(*)] 200 mg PO BID #120 tab.xr 06/29/16 [Rx Confirmed 06/29/16] - History of Current Complaint Chief Complaint: EDWeakness Stated Complaint: "MS FLARE PER PT" Time Seen by Provider: 07/28/18 21:41 Hx Obtained From: Patient Severity Initially: Severe Severity Currently: Severe Pain Intensity: 9 Pain Scale Used: 0-10 Numeric Timing: Constant - Allergies/Home Medications Allergies/Adverse Reactions: Allergies Allergy/AdvReac Type Severity Reaction Status Date / Time ketorolac [From Toradol] Allergy Eyes Verified 07/28/18 18:54 Itchy/Swollen/Red/Watery meloxicam AdvReac See Comment Verified 07/28/18 18:54 Home Medications: Home Medications Gabapentin CAP(*) [Neurontin 300 CAP(*)] 400 mg PO TID 07/28/18 [History Confirmed 07/28/18] fentaNYL PATCH 25 MCG/HR* [Duragesic PATCH 25 Mcg/Hr*] 75 mcg TRANSDERM Q72H MDD 1 patch 07/28/18 [History Confirmed 07/28/18] PMH/Surg Hx/FS Hx/Imm Hx Endocrine/Hematology History: Denies: Hx Diabetes Cardiovascular History: Denies: Hx Hypertension, Hx Pacemaker/ICD Respiratory History: Denies: Hx Asthma, Hx Chronic Obstructive Pulmonary Disease (COPD) History: Denies: Hx Dialysis, Hx Renal Disease Musculoskeletal History: Reports: Hx Arthritis - neck, Other Musculoskeletal History Denies: Hx Back Problems Sensory History: Reports: Hx Contacts or Glasses Denies: Hx Hearing Aid Opthamlomology History: Reports: Hx Contacts or Glasses Neurological History: Reports: Hx Migraine - per patient, Other Neuro Impairments/Disorders - MS Denies: Hx Dementia, Hx Seizures Psychiatric History: Reports: Hx Depression, Hx Inpatient Treatment, Hx Substance Abuse Denies: Hx Eating Disorder, Hx Panic Disorder, Hx Suicide Attempt, Hx of Violent Episodes Against Others - Surgical History Surgery Procedure, Year, and Place: C-Spine FUSION, APPENDECTOMY, BULLET IN LEG REMOVED (MRI APPROVAL BY DR. MILLER 02/19/2016 - PT UNDERSTANDS HEATING POTENTIAL) - Immunization History Date of Tetanus Vaccine: 2015 Date of Influenza Vaccine: 2016 Infectious Disease History: No Infectious Disease History: Denies: Traveled Outside the [place] in Last 30 Days - Family History Known Family History: Positive: Cardiac Disease, Diabetes - Social History Alcohol Use: None Hx Substance Use: Yes Substance Use Type: Reports: Marijuana Hx Tobacco Use: No Smoking Status (MU): Never Smoked Tobacco Review of Systems Positive: Other - Lower extremity pain bilaterally Positive: Weakness All Other Systems Reviewed And Are Negative: Yes Physical Exam - Summary Physical Exam Summary: VITAL SIGNS: Reviewed. GENERAL: Patient is a well-developed and nourished MALE who is lying comfortable in the stretcher. Patient is not in any acute respiratory distress. HEAD AND FACE: No signs of trauma. No ecchymosis, hematomas or skull depressions. No sinus tenderness. EYES: PERRLA, EOMI x 2, No injected conjunctiva, no nystagmus. EARS: Hearing grossly intact. Ear canals and tympanic membranes are within normal limits. MOUTH: Oropharynx within normal limits. NECK: Supple, trachea is midline, no adenopathy, no JVD, no carotid bruit, no c- spine tenderness, neck with full ROM CHEST: Symmetric, no tenderness at palpation LUNGS: Clear to auscultation bilaterally. No wheezing or crackles. CVS: Regular rate and rhythm, S1 and S2 present, no murmurs or gallops appreciated. ABDOMEN: Soft, non-tender. No signs of distention. No rebound no guarding, and no masses palpated. Bowel sounds are normal. EXTREMITIES: FROM in all major joints, no edema, no cyanosis or clubbing. NEURO: Alert and oriented x 3. No acute neurological deficits. Speech is normal and follows commands. SKIN: Dry and warm Triage Information Reviewed: Yes Vital Signs On Initial Exam: Initial Vitals Temp Pulse Resp BP Pulse Ox 99.1 F 96 20 153/107 98 07/28/18 18:50 07/28/18 18:50 07/28/18 18:50 07/28/18 18:50 07/28/18 18:50 Vital Signs Reviewed: Yes Diagnostics - Vital Signs Vital Signs Temp Pulse Resp BP Pulse Ox 07/28/18 21:06 98.9 F 82 18 163/117 97 07/28/18 18:50 99.1 F 96 20 153/107 98 - Laboratory Result Diagrams: 07/28/18 22:29 Lab Statement: Any lab studies that have been ordered have been reviewed, and results considered in the medical decision making process. Lower Extremity Course/Dx - Course Course Of Treatment: This patient is a 42 year old male presenting to [facility] with a chief complaint of MS flare up since 12 hours ago. Patient decided he wanted to leave against medical advice. Patient will be discharged against medical advice. - Diagnoses Provider Diagnoses: Weakness Discharge - Sign-Out/Discharge Documenting (check all that apply): Patient Departure - Discharge AMA Patient Received Moderate/Deep Sedation with Procedure: No - Discharge Plan Condition: Stable Disposition: AGAINST MEDICAL ADVICE Patient Education Materials: Weakness (ED) Additional Instructions: Return to ED with any new or worsening symptoms. - Attestation Statements Document Initiated by Scribe: Yes Documenting Scribe: Jamison Taylor Provider For Whom Scribe is Documenting (Include Credential): Karolina Cruz MD Scribe Attestation: IJamison, scribed for Karolina Cruz MD on 07/28/18 at 2250. Status of Scribe Document: Ready
[2018-07-28 22:36] LABS: ABS Basophils 0.1 10^3/ul (0-0.2); ABS Lymphocytes 2.5 10^3/ul (1.0-4.8); ABS Monocytes 1.2 10^3/ul (0-0.8); ABS Neutrophils 13.8 10^3/ul (1.5-7.7); Eosinophil % 0.2 %; Hematocrit 39 % (42-52); Mean Corpuscular HGB Conc 33 g/dL (31-36); Mean Corpuscular Hemoglobin 28 pg (27-31); Mean Corpuscular Volume 85 fL (80-94); Mean Platelet Volume 9.5 fL (7.4-10.4); Platelet Count 362 10^3/uL (150-450); Red Blood Count 4.63 10^6 /uL (4.18-5.48); Red Cell Distribution Width 14 % (10-15); White Blood Count 17.6 10^3/uL (3.5-10.8)
[2018-07-28 22:45] LABS: Activated Partial Thrombo Time 32.7 seconds (26.0-38.0); INR 1.11 (0.82-1.09)
[2018-07-28 22:50] VITALS: BP 151/96
[2018-07-28 22:52] LABS: Albumin 4.3 g/dL (3.2-5.2); Albumin/Globulin Ratio 1.2 (1-3); C Reactive Protein 2.31 mg/L (<8.01); EGFR African American 98.7 (>60); EGFR Non-African American 81.6 (>60); Globulin 3.6 g/dL (2-4); Potassium 3.2 mmol/L (3.5-5.0); Total Bilirubin 0.4 mg/dL (0.2-1.0); Total Protein 7.9 g/dL (6.4-8.9)
[2018-07-28 23:40] LABS: Erythrocyte Sed Rate 28 mm/Hr (0-14)
== END 2018-07-28 22:53 | disposition left against medical advice (07) ==
LOC: ED 18:42
DX: R53.1 Weakness (principal); M79.605 Pain in left leg; M79.604 Pain in right leg
CPT/HCPCS: 36415; 80053; 85025; 85610; 85652; 85730; 86140; 99283

== ENCOUNTER 2023-11-16 11:22 | Observation (INO) ==
[2023-11-16] MEDS: Lactated Ringers 1000 ml BAG 1,000 ML IV ONE (14:53)
[2023-11-16 15:15] LABS: ABS Eosinophils 0.4 10^3/uL (0.0-0.5); ABS Monocytes 0.7 10^3/uL (0.0-1.1); ABS Nucleated RBC 0.01 10^3/ul; Eosinophil % 5.4 %; Hematocrit 31.6 % (38-53); Hemoglobin 9.8 g/dL (13.2-16.3); Lymphocyte % 24.1 %; Mean Corpuscular Hemoglobin 24.9 pg (27-33); Mean Corpuscular Hgb Conc 30.9 g/dL (31-36); Mean Corpuscular Volume 80.6 fL (80-97); Mean Platelet Volume 9.3 fL (7.5-11.2); Nucleated Red Blood Cells % 0.1 %/100WBC (0.0-0.8); Platelet Count 309 10^3/uL (150-450); Red Blood Count 3.92 10^6/uL (4.06-5.63); Red Cell Distribution Width 20.4 % (12-17); White Blood Count 8.1 10^3/uL (3.6-10.2)
[2023-11-16 15:41] LABS: Albumin 3.9 g/dL (3.2-5.2); Albumin/Globulin Ratio 0.8 (1-3); Calcium 9.7 mg/dL (8.6-10.3); Creatinine, Serum 1.8 mg/dL (0.67-1.17); Globulin 4.7 g/dL (2-4); Potassium 4.4 mmol/L (3.5-5.0); Total Bilirubin 0.3 mg/dL (0.2-1.0); Total Protein 8.6 g/dL (6.4-8.9); eGFR CKD-EPI 45.6 (>60)
[2023-11-16] MEDS: Lactated Ringers 1000 ml BAG 1,000 ML IV SCH (17:41)
[2023-11-16 17:49] LABS: Urine Appearance Clear; Urine Bilirubin Negative (Negative); Urine Blood Negative (Negative); Urine Color Light-Yellow; Urine Glucose Negative (Negative); Urine Ketones Negative (Negative); Urine Nitrite Negative (Negative); Urine Protein Negative (Negative); Urine Specific Gravity 1.014 (1.002-1.030); Urine Urobilinogen Negative (Negative); Urine pH 5.5 (5.0-8.0)
[2023-11-16] MEDS: Heparin 5000 UNITS/ML 1 mL VIAL SUBCUT SCH (22:23)
[2023-11-17] MEDS ORDERED: HYDROmorphone 0.5 MG/0.5 ML SYRINGE IV SLOW PU PRN (03:31)
[2023-11-17 05:41] LABS: ABS Basophils 0.1 10^3/uL (0.0-0.1); ABS Eosinophils 0.4 10^3/uL (0.0-0.5); ABS Lymphocytes 1.4 10^3/uL (1.0-4.8); ABS Monocytes 0.8 10^3/uL (0.0-1.1); ABS Neutrophils 4.5 10^3/uL (1.5-7.6); Eosinophil % 5.6 %; Hematocrit 28.6 % (38-53); Hemoglobin 9.3 g/dL (13.2-16.3); Lymphocyte % 19.3 %; Mean Corpuscular Hemoglobin 25.7 pg (27-33); Mean Corpuscular Hgb Conc 32.6 g/dL (31-36); Mean Corpuscular Volume 78.8 fL (80-97); Mean Platelet Volume 8.7 fL (7.5-11.2); Platelet Count 295 10^3/uL (150-450); Red Blood Count 3.63 10^6/uL (4.06-5.63); Red Cell Distribution Width 20.3 % (12-17); White Blood Count 7.1 10^3/uL (3.6-10.2)
[2023-11-17 06:09] LABS: Calcium 9.4 mg/dL (8.6-10.3); Creatinine, Serum 1.41 mg/dL (0.67-1.17); Magnesium 1.9 mg/dL (1.9-2.7); Phosphorus 4.4 mg/dL (2.5-5.0); Potassium 4.1 mmol/L (3.5-5.0); eGFR CKD-EPI 61.1 (>60)
[2023-11-17] MEDS: Gadoteridol (CONTRAST) 279.3 MG/ML 10 ML IV ONE (21:44)
[2023-11-18] MEDS: Acetaminophen IV 1 GM/100ML 1,000 MG/100 ML BAG IV ONE (05:17)
[2023-11-18 09:39] LABS: ABS Basophils 0.1 10^3/uL (0.0-0.1); ABS Eosinophils 0.3 10^3/uL (0.0-0.5); ABS Lymphocytes 1.4 10^3/uL (1.0-4.8); ABS Monocytes 0.5 10^3/uL (0.0-1.1); ABS Neutrophils 5.1 10^3/uL (1.5-7.6); Eosinophil % 3.6 %; Hematocrit 30.5 % (38-53); Hemoglobin 9.6 g/dL (13.2-16.3); Lymphocyte % 19.1 %; Mean Corpuscular Hemoglobin 24.8 pg (27-33); Mean Corpuscular Hgb Conc 31.5 g/dL (31-36); Mean Platelet Volume 8.8 fL (7.5-11.2); Platelet Count 309 10^3/uL (150-450); Red Blood Count 3.86 10^6/uL (4.06-5.63); Red Cell Distribution Width 20.7 % (12-17); White Blood Count 7.4 10^3/uL (3.6-10.2)
[2023-11-18 10:02] LABS: Albumin 3.7 g/dL (3.2-5.2); Albumin/Globulin Ratio 0.9 (1-3); Calcium 9.5 mg/dL (8.6-10.3); Creatinine, Serum 1.42 mg/dL (0.67-1.17); Globulin 4.2 g/dL (2-4); Potassium 3.9 mmol/L (3.5-5.0); Total Bilirubin 0.3 mg/dL (0.2-1.0); Total Protein 7.9 g/dL (6.4-8.9); eGFR CKD-EPI 60.6 (>60)
[2023-11-18 10:07] VITALS: BP 102/67
[2023-11-18] MEDS: Tetracaine 0.5% OPTH.SOL 4 ML BTL BOTH EYES ONE (12:30)
== END 2023-11-18 14:54 | disposition home or self-care (01) ==
LOC: ED 11:22 → EDHOLD 11:22 → MED 18:10
PROVIDERS: ADMIT Hospitalist; ATTEND Internal Medicine